=== PATIENT | female | born 1950 | race Caucasian/White ===

== ENCOUNTER 2018-05-26 12:08 | Inpatient (IN) ==
--- OUTSIDE RECORDS SUMMARY | 2018-05-26 18:02 | External Medical Summary | Continuity of Care Document ---
:1950 Author Organization [facility] Phone Unavailable Care Team Providers Name Role Phone SUSAN HERNANDEZ YOSVANY Primary Care Physician Insurance Providers Guarantor FrankChino jsohuasabrina Bansal Address [address] [place] [address] Payer Blue Cross Plan 65 [employer] Policy Number [id number] Subscriber's Name Tara Lunasharon Bansal Relationship 01 Self / Same As Patient Group Number [id number] Effective Date 16 Payer s Medicare Policy Number [id number] Subscriber's Name Teagan Luna Nimisha Relationship 01 Self / Same As Patient Effective Date 16 Problems Active Problems Medical Problem Onset Date Status Breast mass Unknown Acute Elevated liver enzymes Unknown Acute Shortness of breath Unknown Acute Medications Current Home Medications Medication Dose Units Route Directions Days Qty Instructions Start Date Amitriptyline Hcl 10 Mg Oral Bedtime as 30 IF TOO SLEEPY 02/20/ 10 Mg Tab needed for Tablet DECREASE TO 16 Sleeplessness 10MG EVERY OTHER EVENING Aspirin-Acetamino 1 X Oral as needed for 02/04/ phen-Caffeine Headache 16 (Excedrin Migraine) Migraine Tab Cholecalciferol 50,00 Iu Oral Twice A Week 02/04/ (Vitamin D3) 0 for Vitamin D 16 50,000 Unit Tab Supplement Citalopram 40 Mg Oral Daily for 02/03/ Hydrobromide 40 Depression 16 Mg Tab Dicyclomine Hcl 20 Mg Oral Daily for Ibs Mg Tab 16 Exenatide 20 Mcg Subcutaneous Daily for Dm, (Byetta) 10 Mcg ly Insulin Dep 16 Inj Type Ii Glyburide 2.5 Mg 2.5 Mg Oral Daily With Tab Breakfast for 16 Dm, Insulin Dependent Insulin Aspart 30 Units Subcutaneous 4 Times Daily 1 Vial (Novolog) 100 ly Ac & Hs for 16 Mg/Ml Inj Dm, Insulin Dep Type Ii Insulin Glargine 30 Unit Subcutaneous Bedtime for (Lantus Solostar) ly Dm, Insulin 16 Solostar Inj Dependent Lisinopril & 1 Tab Oral Daily for 90 Hydrochlorothiazi Hypertension 16 (Lisinopril/Hct 10/12.5) 1 Tab Tab Olanzapine 5 Mg 5 Mg Oral Daily for Not Tab Specified 16 Risperidone 1 Mg 1 Mg Oral Twice A Day Tab for Not 16 Specified Tizanidine Hcl 4 4 Mg Oral Twice A Day 02/03/ Mg Tab for Back 16 Spasms Past Home Medications Medication Directions Ordered Status Insulin Aspart (Novolog Flexpen) Four Times Daily for Dm, 02/05/16 Discontinued Flexpen Inj, 30 Units Insulin Dependent Subcutaneously Oxycodone/Acetaminophen (Percocet) Q4-6HRPRN for Pain 02/22/16 Discontinued 1 Ea Tab, 1-2 Ea Oral Social History Social History Problem Response Recorded Date/Time Onset Date Status Smoking Status Never smoker 02/25/2016 2:18pm Not Applicable Not Applicable Query Response Start Date Stop Date Smoking Status Never smoker Hospital Discharge Instructions Current inpatient/outpatient. Discharge instructions are currently unavailable. Plan of Care Current inpatient/outpatient. The plan of care is currently unavailable Functional Status No functional status results. 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 Reason Number Tetanus/Diphtheri 02/05/16 Administered 1 [id number] GLAXOSMITHKLINE a/Pertussis (age >=7) Vital Signs Acute Vital Signs Vital Response Date/Time Blood Pressure 124/57 mm Hg 02/22/2016 1:36pm Blood Pressure Mean 94 mm Hg 02/21/2016 3:22pm Blood Pressure Mean 79 mm Hg 02/22/2016 1:36pm Temperature (Fahrenheit) 99.0 degrees F (96.0 - 99.9) 02/22/2016 1:36pm Temperature (Calculated Celsius) 37.57375 degrees C 02/22/2016 1:36pm Temperature Source Oral 02/22/2016 1:36pm Temp 99.2 degrees F (96.0 - 99.9) 02/21/2016 3:25pm Temperature (Calculated Celsius) 37.96412 degrees C 02/21/2016 3:25pm Pulse Pulse Rate (adult) 108 bpm (60 - 100) 02/22/2016 1:36pm Pulse Rate (adult) 114 bpm (60 - 100) 02/21/2016 3:22pm Respiratory Rate 20 breaths per minute (10 - 20) 02/22/2016 1:36pm Respiratory Rate 10 bpm (10 - 20) 02/21/2016 3:22pm Height (Feet) 5 ft 02/21/2016 6:33am Height (Inches) 2.0 in. 02/21/2016 6:33am Weight (Pounds) 213.0 lbs 02/21/2016 6:33am Ambulatory Vital Signs Vital Response Date/Time Height 5 ft 11/03/2016 2:06pm Weight 213 lbs 11/03/2016 2:06pm Blood Pressure, Sitting, Left Arm 118/64 mm Hg 11/03/2016 2:06pm Pulse Rate 107 bpm 11/03/2016 2:06pm Respiration Rate 18 bpm 11/03/2016 2:06pm Body Surface Area 2.08 m2 11/03/2016 2:06pm Body Mass Index 41.6 kg/m2 11/03/2016 2:06pm Pulse Oximetry Pulse Oximetry 11/03/2016 2:06pm Results Laboratory Results Test Name Result Units Flags Reference Collection Result Comments Date/Time Date/Time Heparin 0.01 L 0.2-2.0 02/06/2016 02/06/2016 Anti-Xa Act, 4:24am 5:50am Low Molec Wt Heparin 0.01 L 0.3-0.7 02/06/2016 02/06/2016 The Xa results for both Unfractionated Heparin (UFH) and Low Anti-Xa Act, 4:24am 5:50am Molecular Weight Heparin (LMWH) are temporarily being given Unfractionate with each aPTT ordered. Utilize the Xa result that d coordinates with the type of heparin being administered, if the patient is on heparin therapy. Prothrombin 13.0 SECONDS H 9.0-12.0 02/04/2016 02/04/2016 Time 3:27pm 8:03pm Prothromb 1.19 L 2.0-3.0 02/04/2016 02/04/2016 Time THERAPEUTIC 3:27pm 8:03pm International Ratio Activated 31.3 SECONDS 24.0-37.0 02/06/2016 02/06/2016 Partial 4:24am 5:50am Thromboplast Time MRSA MRSA NEGATIVE 02/04/2016 02/04/2016 Surveillance NEGATIVE 5:25pm 9:52pm Screen Anti-Nuclear Negative Negative 02/06/2016 02/08/2016 HERIBERTO Panel, Quantitative performed at [facility], [facility], Antibody 4:24am 4:57am [place] [address] Director Speech And Hearing Eryn Langford DO Titer Hepatitis B Negative 02/06/2016 02/06/2016 Core IgM 4:24am 11:23pm Antibody Hepatitis B Negative Negative 02/06/2016 02/06/2016 Surface 4:24am 11:23pm Antigen Tissue <1.2 U/mL 02/06/2016 02/10/2016 Reference Range: Transglutamin 4:24am 12:55pm <4.0 (Negative) ase IgA Ab Test Performed by: [place] [address] [employer]: Daria Galloway II, M.D., Ph.D. Tissue 1.7 U/mL 02/06/2016 02/10/2016 Reference Range: Transglutamin 4:24am 12:07pm <6.0 (Negative) ase IgG Ab Test Performed by: [address] [address] [employer]: Daria Galloway II, M.D., Ph.D. Tissue Transglutaminase Ab, IgA/[place] [address] Director Speech And Hearing Nilesh Regan MD Hepatitis C Negative Negative 02/06/2016 02/06/2016 Hepatitis Panel performed at [facility], [facility], [place] Antibody 4:24am 11:23pm [id number] Director Speech And Hearing Eryn Langford DO Hepatitis A Negative Negative 02/06/2016 02/06/2016 IgM Antibody 4:24am 11:23pm Bedside 223 mg/dL H 70-120 02/22/2016 02/22/2016 Glucose 11:54am 11:56am CA 27.29 13.4 U/mL <=38.0 09/23/2016 09/25/2016 ADDITIONAL INFORMATION 10:54am 10:47pm The testing method is a chemiluminometric immunoassay manufactured by [employer] and performed on the [employer]. Values obtained with different assay methods or kits may be different and cannot be used interchangeably. Test results cannot be interpreted as absolute evidence for the presence or absence of malignant disease. Test Performed by: [place] [address] [employer]: Daria Galloway II, M.D., Ph.D. CA 27.29 performed at [facility], [address] [place] [address] Director Speech And Hearing Nilesh Regan MD White Blood 5.5 K/uL 5.0-10.0 02/11/2017 02/11/2017 Count 3:05pm 3:28pm Red Blood 3.06 M/uL L 4.20-5.40 02/11/2017 02/11/2017 Count 3:05pm 3:28pm Hemoglobin 9.5 g/dL L 12.0-16.0 02/11/2017 02/11/2017 3:05pm 3:28pm Hematocrit 29.2 % L 38.0-47.0 02/11/2017 02/11/2017 3:05pm 3:28pm Mean 95.4 fL 82.0-100.0 02/11/2017 02/11/2017 Corpuscular 3:05pm 3:28pm Volume Mean 31.0 pg 26.0-33.0 02/11/2017 02/11/2017 Corpuscular 3:05pm 3:28pm Hemoglobin Mean 32.5 g/dL 31.0-36.0 02/11/2017 02/11/2017 Corpuscular 3:05pm 3:28pm Hemoglobin Concent Red Cell 15.9 % H 11.5-14.5 02/11/2017 02/11/2017 Distribution 3:05pm 3:28pm Width RDW Standard 53.5 fL H 36.4-46.3 02/11/2017 02/11/2017 Deviation 3:05pm 3:28pm Platelet 236 K/uL 130-400 02/11/2017 02/11/2017 Count 3:05pm 3:28pm Mean Platelet 8.2 fL 7.0-11.0 02/11/2017 02/11/2017 Volume 3:05pm 3:28pm Neutrophils 71.8 % 42.0-75.0 02/11/2017 02/11/2017 (%) (Auto) 3:05pm 3:28pm Lymphocytes 17.2 % 16.0-44.0 02/11/2017 02/11/2017 (%) (Auto) 3:05pm 3:28pm Monocytes (%) 7.1 % 2.0-9.0 02/11/2017 02/11/2017 (Auto) 3:05pm 3:28pm Eosinophils 2.5 % 0-7.0 02/11/2017 02/11/2017 (%) (Auto) 3:05pm 3:28pm Basophils (%) 0.5 % 0-1 02/11/2017 02/11/2017 (Auto) 3:05pm 3:28pm Immature 0.9 % H 0-0.5 02/11/2017 02/11/2017 Granulocyte % 3:05pm 3:28pm (Auto) Nucleated Red 0.0 /100WBC 0-0 02/11/2017 02/11/2017 Blood Cells % 3:05pm 3:28pm Neutrophils # 4.0 K/uL 1.9-8.0 02/11/2017 02/11/2017 (Auto) 3:05pm 3:28pm Lymphocytes # 1.0 K/uL 0.9-5.2 02/11/2017 02/11/2017 (Auto) 3:05pm 3:28pm Monocytes # 0.4 K/uL 0.16-1.0 02/11/2017 02/11/2017 (Auto) 3:05pm 3:28pm Eosinophils # 0.1 K/uL 0-0.8 02/11/2017 02/11/2017 (Auto) 3:05pm 3:28pm Basophils # 0.0 K/uL 0-0.2 02/11/2017 02/11/2017 (Auto) 3:05pm 3:28pm Immature 0.05 K/uL 0-0.40 02/11/2017 02/11/2017 Granulocyte # 3:05pm 3:28pm (Auto) Nucleated Red 0.00 K/uL 0.0-0.012 02/11/2017 02/11/2017 Blood Cells # 3:05pm 3:28pm Reticulocyte 4.1 % H 0.5-1.8 02/11/2017 02/11/2017 % (auto) 3:05pm 3:28pm Reticulocyte 0.124 X10e6/uL 0.022-0.139 02/11/2017 02/11/2017 Count (auto) 3:05pm 3:28pm Immature 35.2 % H 3.0-15.9 02/11/2017 02/11/2017 Reticulocyte 3:05pm 3:28pm Fraction Reticulocyte 35.3 pg 28.0-37.0 02/11/2017 02/11/2017 Hemoglobin 3:05pm 3:28pm Content Iron Level 45 ug/dL L 60-160 02/11/2017 02/11/2017 3:05pm 4:02pm TRANSFERRIN 247 mg/dL L 250-380 02/11/2017 02/11/2017 3:05pm 4:02pm Total Iron 368.6 ug/dl 250-460 02/11/2017 02/11/2017 Binding 3:05pm 4:02pm Capacity Percent Iron 12.2 % L 15-50 02/11/2017 02/11/2017 Saturation 3:05pm 4:02pm Vitamin B12 258 pg/ml 180-950 02/11/2017 02/11/2017 Level 3:05pm 4:52pm Ferritin 55.6 ng/mL 11.0-306.8 02/11/2017 02/11/2017 3:05pm 4:52pm Haptoglobin 253 mg/dL H 36-195 02/11/2017 02/12/2017 Haptoglobin performed at [facility], [address] [facility] [place] [address] 3:05pm 12:59am Director Speech And Hearing Eryn Langford DO Random 111 mg/dL 65-115 02/03/2017 02/03/2017 Glucose 12:00pm 1:25pm Blood Urea 27 mg/dL H 8-25 02/03/2017 02/03/2017 Nitrogen 12:00pm 1:25pm Creatinine 1.30 mg/dL 0.9-1.6 02/03/2017 02/03/2017 12:00pm 1:25pm Glomerular 40.98 mL/min 02/03/2017 02/03/2017 MULTIPLY RESULT BY 1.210 IF THE PATIENT IS -ETHIOPIAN Filtration 12:00pm 1:25pm Units are mL/min/1.73 m2 Rate Calc > 60 Normal kidney function 30-59 Moderately decreased kidney function 15-29 Severely decreased kidney function <15 End-stage kidney failure BUN/Creatinin 20.8 02/03/2017 02/03/2017 e Ratio 12:00pm 1:25pm Sodium Level 135 mEq/L 133-145 02/03/2017 02/03/2017 12:00pm 1:25pm Potassium 4.5 mEq/L 3.5-5.1 02/03/2017 02/03/2017 Level 12:00pm 1:25pm Chloride 98 mEq/L 98-116 02/03/2017 02/03/2017 Level 12:00pm 1:25pm Carbon 29 mEq/L 22-34 02/03/2017 02/03/2017 Dioxide Level 12:00pm 1:25pm Anion Gap 12.5 6-13 02/03/2017 02/03/2017 12:00pm 1:25pm Calcium Level 9.7 mg/dL 8.2-10.6 02/03/2017 02/03/2017 12:00pm 1:25pm Total Protein 7.1 gm/dL 6.0-8.4 02/03/2017 02/03/2017 12:00pm 1:25pm Albumin 3.4 gm/dL 3.2-5.0 02/03/2017 02/03/2017 12:00pm 1:25pm Globulin 3.7 gm/dL H 2.0-3.0 02/03/2017 02/03/2017 12:00pm 1:25pm Albumin/Globu 0.9 L 1.4-2.4 02/03/2017 02/03/2017 mona Ratio 12:00pm 1:25pm Total 0.3 mg/dL 0.1-1.3 02/03/2017 02/03/2017 Bilirubin 12:00pm 1:25pm Alkaline 73 U/L 35-125 02/03/2017 02/03/2017 Phosphatase 12:00pm 1:25pm Aspartate 21 U/L 5-40 02/03/2017 02/03/2017 Amino Transf 12:00pm 1:25pm (AST/SGOT) Alanine 22 U/L 5-40 02/03/2017 02/03/2017 Aminotransfer 12:00pm 1:25pm ase (ALT/SGPT) Thyroid 2.54 uIU/ml 0.34-5.60 02/11/2017 02/11/2017 Stimulating 3:05pm 4:52pm Hormone (TSH) Albumin (PEP) 3.6 g/dL 2.6-4.5 02/11/2017 02/12/2017 3:05pm 1:37pm IEP 0.3 g/dL 0.3-0.5 02/11/2017 02/12/2017 Orosomucoid 3:05pm 1:37pm (Alpha-1) IEP 0.9 g/dL 0.6-1.2 02/11/2017 02/12/2017 Ceruloplasmin 3:05pm 1:37pm (Alpha-2) Paraprotein 0.9 g/dL 0.4-1.7 02/11/2017 02/12/2017 Gamma 3:05pm 1:37pm Fraction Immunoelectro see below 02/11/2017 02/12/2017 Normal electrophoretic pattern. No monoclonal peaks or phoresis 3:05pm 1:37pm restricted areas observed by immunofixation. Comment Protein 6.4 g/dL 6.0-7.6 02/11/2017 02/11/2017 Electrophores 3:05pm 10:24pm is (T) Immunoelectro 985 mg/dL 552-1631 02/11/2017 02/11/2017 phoresis IgG 3:05pm 10:24pm Immunoelectro 25 mg/dL L 69-517 02/11/2017 02/11/2017 phoresis IgA 3:05pm 10:24pm Immunoelectro 32 mg/dL L 33-293 02/11/2017 02/11/2017 Immunoelectrophoresis, Serum performed at [facility], [address], phoresis IgM 3:05pm 10:24pm [place] [id number] Director Speech And Hearing Eryn Langford DO Albumin (%) 55.9 % 48.7-61.8 02/11/2017 02/12/2017 3:05pm 1:37pm Mwzkf-1-Thxau 5.3 % 3.4-8.3 02/11/2017 02/12/2017 michael (%) 3:05pm 1:37pm Alpha-2 Beta 13.9 % 8.4-17.5 02/11/2017 02/12/2017 Globulin (%) 3:05pm 1:37pm IEP 7.1 % 5.4-8.9 02/11/2017 02/12/2017 Inub-1-Dsdnxd 3:05pm 1:37pm ment Beta-Globulin 0.5 g/dL 0.4-0.6 02/11/2017 02/12/2017 s (BRAYAN) 3:05pm 1:37pm Ztvg-7-Coweir 4.4 % 3.8-7.7 02/11/2017 02/12/2017 in (%) 3:05pm 1:37pm Oizv-5-Bdyzxh 0.3 g/dL 0.2-0.5 02/11/2017 02/12/2017 in 3:05pm 1:37pm Gamma 13.4 % 8.1-23.0 02/11/2017 02/12/2017 Immunoelectrophoresis, Serum performed at [facility], [address], Globulins (%) 3:05pm 1:37pm [place] [id number] Director Speech And Hearing Eryn Langford DO Procedures Procedure Status Date Provider(s) EXCISION OF LEFT BREAST, PERCUTANEOUS Completed 02/06/16 GILES TODD M.D. APPROACH, DIAGNOSTIC MAST SIMPLE COMPLETE Completed 02/21/16 GILES TODD M.D. BIOPSY/REMOVAL LYMPH NODES Completed 02/21/16 GILES TODD M.D. Encounters Encounter Location Arrival/Admit Date Discharge/Depart Date Attending Provider Discharged Layla Brown 02/11/17 3:03pm 05/22/17 11:59pm JEAN CLAUDE DONOVAN [facility] Rodolfo Wang Registered Layla Brown 02/03/17 12:18pm JEAN CLAUDE DONOVAN Referred [facility] S. M.D. Office Visit GILES TODD 11/03/16 1:45pm GILES TODD M.D. Registered Giles Todd 11/03/16 1:45pm GILES TODD M.D. Discharged Layla Brown 09/23/16 10:53am 01/01/17 11:59pm JEAN CLAUDE DONOVAN [facility] S. M.D[facility] Office Visit GILES TODD 07/06/16 1:45pm GILES TODD M.D. Discharged Layla Brown 05/13/16 1:58pm 11/22/16 11:59pm BRYCE GOODMAN [facility] A M.DJaxon Registered Layla Brown 05/13/16 12:46pm BRYCE GOODMAN Referred Mem[facility] Hospital A M.DJaxon Registered Layla Brown 04/21/16 7:39am JEAN CLAUDE DONOVAN Referred [facility] S. M.D. Office Visit GILES TODD 04/06/16 2:15pm GILES TODD M.D. Office Visit GILES TODD 03/09/16 1:45pm GILES TODD M.D. Office Visit GILES TODD 02/28/16 1:45pm GILES TODD M.D. Office Visit GILES TODD 02/25/16 2:00pm GILES TODD M.D. Departed Layla Brown 02/21/16 6:33am 02/22/16 1:51pm GILES TODD Surgical Day [facility]. [facility] Office Visit GILES TODD 02/13/16 2:45pm GILES TODD M.D. Discharged Layla Brown 02/04/16 5:50pm 02/06/16 4:25pm PA RIOS Inpatient [facility]. [facility] M.Gabrielle.
--- OUTSIDE RECORDS SUMMARY | 2018-05-26 18:02 | External Medical Summary | Continuity of Care Document ---
:1950 Author Organization [facility] Phone Unavailable Care Team Providers Name Role Phone SUSAN HERNANDEZ YOSVANY Primary Care Physician Insurance Providers Guarantor FrankChino joshuasabrina Bansal Address [address] [place] [address] Payer Blue Cross Plan 65 Select Policy Number [id number] Subscriber's Name Tara Lunasharon Bansal Relationship 01 Self / Same As Patient Group Number [id number] Effective Date 16 Payer s Medicare Policy Number [id number] Subscriber's Name Tara Lunasharon Bansal Relationship 01 [...] Smoking Status Never smoker Hospital Discharge Instructions No hospital discharge instructions. Plan of Care Prescriptions See Medication Section Functional Status No functional status results. 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 Reason Number Tetanus/Diphtheri 02/05/16 Administered 1 [id number] GLAXOSMITHKLINE a/Pertussis (age >=7) Vital Signs Acute Vital Signs Vital Response Date/Time Blood Pressure 124/57 mm Hg 02/22/2016 1:36pm Blood Pressure Mean 94 mm Hg 02/21/2016 3:22pm Blood Pressure Mean 79 mm Hg 02/22/2016 1:36pm Temperature (Fahrenheit) 99.0 degrees F (96.0 - 99.9) 02/22/2016 1:36pm Temperature (Calculated Celsius) 37.34598 degrees C 02/22/2016 1:36pm Temperature Source Oral 02/22/2016 1:36pm Temp 99.2 degrees F (96.0 - 99.9) 02/21/2016 3:25pm Temperature (Calculated Celsius) 37.61332 degrees C 02/21/2016 3:25pm Pulse Pulse Rate [...] Flags Reference Collection Result Comments Date/Time Date/Time TRANSFERRIN 206 mg/dL L 250-380 02/06/2016 02/06/2016 4:24am 10:35am Ferritin 388.5 ng/mL H 11.0-306.8 02/06/2016 02/06/2016 4:24am 11:15am Heparin 0.01 L 0.2-2.0 02/06/2016 02/06/2016 Anti-Xa [...] 02/06/2016 02/06/2016 Partial 4:24am 5:50am Thromboplast Time Thyroid 2.50 uIU/ml 0.34-5.60 02/06/2016 02/06/2016 Stimulating 4:24am 11:15am Hormone (TSH) MRSA MRSA NEGATIVE 02/04/2016 02/04/2016 Surveillance NEGATIVE 5:25pm 9:52pm Screen Anti-Nuclear Negative Negative 02/06/2016 02/08/2016 HERIBERTO Panel, Quantitative performed at [facility], [address], Antibody 4:24am 4:57am [place] [id number] Scrap Baler Eryn Langford DO Titer Hepatitis B Negative 02/06/2016 02/06/2016 Core IgM 4:24am 11:23pm Antibody Hepatitis B Negative Negative 02/06/2016 02/06/2016 Surface 4:24am 11:23pm Antigen Tissue <1.2 U/mL 02/06/2016 02/10/2016 Reference Range: Transglutamin 4:24am 12:55pm <4.0 (Negative) ase IgA Ab Test Performed by: [place] [address] Plant Operations Coordinator: Daria Galloway II, M.D., Ph.D. Tissue 1.7 U/mL 02/06/2016 02/10/2016 Reference Range: Transglutamin 4:24am 12:07pm <6.0 (Negative) ase IgG Ab Test Performed by: [place] [address] Plant Operations Coordinator: Daria Galloway II, M.D., Ph.D. Tissue Transglutaminase Ab, IgA/IgG performed at [facility], [address] [place] [address] Scrap Baler Nilesh Regan MD Hepatitis C Negative Negative 02/06/2016 02/06/2016 Hepatitis Panel performed at [facility], [address], [place] Antibody 4:24am 11:23pm [id number] Scrap Baler Eryn Langford DO Hepatitis A Negative Negative 02/06/2016 02/06/2016 IgM Antibody 4:24am 11:23pm Bedside 223 mg/dL H 70-120 02/22/2016 02/22/2016 Glucose 11:54am 11:56am White Blood 3.9 K/uL L 5.0-10.0 09/23/2016 09/23/2016 Count 10:54am 11:22am Red Blood 3.17 M/uL L 4.20-5.40 09/23/2016 09/23/2016 Count 10:54am 11:22am Hemoglobin 10.1 g/dL L 12.0-16.0 09/23/2016 09/23/2016 10:54am 11:22am Hematocrit 30.9 % L 38.0-47.0 09/23/2016 09/23/2016 10:54am 11:22am Mean 97.5 fL 82.0-100.0 09/23/2016 09/23/2016 Corpuscular 10:54am 11:22am Volume Mean 31.9 pg 26.0-33.0 09/23/2016 09/23/2016 Corpuscular 10:54am 11:22am Hemoglobin Mean 32.7 g/dL 31.0-36.0 09/23/2016 09/23/2016 Corpuscular 10:54am 11:22am Hemoglobin Concent Red Cell 15.3 % H 11.5-14.5 09/23/2016 09/23/2016 Distribution 10:54am 11:22am Width RDW Standard 55.1 fL H 36.4-46.3 09/23/2016 09/23/2016 Deviation 10:54am 11:22am Platelet 181 K/uL 130-400 09/23/2016 09/23/2016 Count 10:54am 11:22am Mean Platelet 8.6 fL 7.0-11.0 09/23/2016 09/23/2016 Volume 10:54am 11:22am Neutrophils 64.8 % 42.0-75.0 09/23/2016 09/23/2016 (%) (Auto) 10:54am 11:22am Lymphocytes 20.7 % 16.0-44.0 09/23/2016 09/23/2016 (%) (Auto) 10:54am 11:22am Monocytes (%) 10.1 % H 2.0-9.0 09/23/2016 09/23/2016 (Auto) 10:54am 11:22am Eosinophils 3.1 % 0-7.0 09/23/2016 09/23/2016 (%) (Auto) 10:54am 11:22am Basophils (%) 0.8 % 0-1 09/23/2016 09/23/2016 (Auto) 10:54am 11:22am Immature 0.5 % 0-0.5 09/23/2016 09/23/2016 Granulocyte % 10:54am 11:22am (Auto) Nucleated Red 0.0 /100WBC 0-0 09/23/2016 09/23/2016 Blood Cells % 10:54am 11:22am Neutrophils # 2.5 K/uL 1.9-8.0 09/23/2016 09/23/2016 (Auto) 10:54am 11:22am Lymphocytes # 0.8 K/uL L 0.9-5.2 09/23/2016 09/23/2016 (Auto) 10:54am 11:22am Monocytes # 0.4 K/uL 0.16-1.0 09/23/2016 09/23/2016 (Auto) 10:54am 11:22am Eosinophils # 0.1 K/uL 0-0.8 09/23/2016 09/23/2016 (Auto) 10:54am 11:22am Basophils # 0.0 K/uL 0-0.2 09/23/2016 09/23/2016 (Auto) 10:54am 11:22am Immature 0.02 K/uL 0-0.40 09/23/2016 09/23/2016 Granulocyte # 10:54am 11:22am (Auto) Nucleated Red 0.00 K/uL 0.0-0.012 09/23/2016 09/23/2016 Blood Cells # 10:54am 11:22am Random 149 mg/dL H 65-115 09/23/2016 09/23/2016 Glucose 10:54am 1:21pm Blood Urea 32 mg/dL H 8-25 09/23/2016 09/23/2016 Nitrogen 10:54am 1:21pm Creatinine 1.38 mg/dL 0.9-1.6 09/23/2016 09/23/2016 10:54am 1:21pm Glomerular 38.37 mL/min 09/23/2016 09/23/2016 MULTIPLY RESULT BY 1.210 IF THE PATIENT IS -[place] Filtration 10:54am 1:21pm Units are mL/min/1.73 m2 Rate Calc > 60 Normal kidney function 30-59 Moderately decreased kidney function 15-29 Severely decreased kidney function <15 End-stage kidney failure BUN/Creatinin 23.2 09/23/2016 09/23/2016 e Ratio 10:54am 1:21pm Sodium Level 134 mEq/L 133-145 09/23/2016 09/23/2016 10:54am 1:21pm Potassium 4.4 mEq/L 3.5-5.1 09/23/2016 09/23/2016 Level 10:54am 1:21pm Chloride 100 mEq/L 98-116 09/23/2016 09/23/2016 Level 10:54am 1:21pm Carbon 26 mEq/L 22-34 09/23/2016 09/23/2016 Dioxide Level 10:54am 1:21pm Anion Gap 12.4 6-13 09/23/2016 09/23/2016 10:54am 1:21pm Calcium Level 9.6 mg/dL 8.2-10.6 09/23/2016 09/23/2016 10:54am 1:21pm Total Protein 7.0 gm/dL 6.0-8.4 09/23/2016 09/23/2016 10:54am 1:21pm Albumin 4.1 gm/dL 3.2-5.0 09/23/2016 09/23/2016 10:54am 1:21pm Globulin 2.9 gm/dL 2.0-3.0 09/23/2016 09/23/2016 10:54am 1:21pm Albumin/Globu 1.4 1.4-2.4 09/23/2016 09/23/2016 mona Ratio 10:54am 1:21pm Total 0.7 mg/dL 0.1-1.3 09/23/2016 09/23/2016 Bilirubin 10:54am 1:21pm Alkaline 78 U/L 35-125 09/23/2016 09/23/2016 Phosphatase 10:54am 1:21pm Aspartate 26 U/L 5-40 09/23/2016 09/23/2016 Amino Transf 10:54am 1:21pm (AST/SGOT) Alanine 25 U/L 5-40 09/23/2016 09/23/2016 Aminotransfer 10:54am 1:21pm ase (ALT/SGPT) CA 27.29 13.4 U/mL <=38.0 09/23/2016 09/25/2016 ADDITIONAL INFORMATION 10:54am 10:47pm The testing method is a chemiluminometric immunoassay manufactured by Siemens and performed on the [employer]. Values obtained with different assay methods or kits may be different and cannot be used interchangeably. Test results cannot be interpreted as absolute evidence for the presence or absence of malignant disease. Test Performed by: [place] [address] Plant Operations Coordinator: Daria Galloway II, M.D., Ph.D. CA 27.29 performed at [facility], [address] [place] [address] Scrap Baler Nilesh Regan MD Procedures Procedure Status Date Provider(s) EXCISION OF LEFT BREAST, PERCUTANEOUS Completed 02/06/16 GILES TODD M.D. APPROACH, DIAGNOSTIC MAST SIMPLE COMPLETE Completed 02/21/16 GILES TODD M.D. BIOPSY/REMOVAL LYMPH NODES Completed 02/21/16 GILES TODD M.D. Encounters Encounter Location Arrival/Admit Date Discharge/Depart Date Attending Provider Office Visit GILES TODD 11/03/16 1:45pm GILES TODD M.D. Registered Giles Todd 11/03/16 1:45pm GILES TODD M.D. Discharged Layla Brown 09/23/16 10:53am 01/01/17 11:59pm JEAN CLAUDE DONOVAN [facility] Office Visit GILES TODD 07/06/16 1:45pm GILES TODD M.D. Discharged Layla Brown 05/13/16 1:58pm 11/22/16 11:59pm BRYCE GOODMAN [facility] Paul Wang Registered Layla Brown 05/13/16 12:46pm BRYCE GOODMAN Referred [facility] Paul Wang Registered Layla Brown 04/21/16 7:39am JEAN CLAUDE DONOVAN Referred [facility] S. MJaxonDJaxon Office Visit GILES TODD 04/06/16 2:15pm GILES TODD M.D. Office Visit GILES TODD 03/09/16 1:45pm GILES TODD M.D. Office Visit GILES TODD 02/28/16 1:45pm GILES TODD M.D. Office Visit GILES TODD 02/25/16 2:00pm GILES TODD M.D. Departed Layla Brown 02/21/16 6:33am 02/22/16 1:51pm GILES TODD [facility] Office Visit GILES TODD 02/13/16 2:45pm GILES TODD M.D. Discharged Layla Brown 02/04/16 5:50pm 02/06/16 4:25pm PA RIOS [facility] H M.DJaxon Recent Diagnosis S/P left mastectomy
--- OUTSIDE RECORDS SUMMARY | 2018-05-26 18:02 | External Medical Summary | Continuity of Care Document ---
:1950 Author Organization Layla [facility] Phone Unavailable Care Team Providers Name Role Phone SUSAN HERNANDEZ APRN Primary Care Physician Insurance Providers Guarantor Teagan Luna Address [address] [place] [address] Payer Wps Medicare Policy Number [id number] Subscriber's Name Tara Lunasharon Bansal Relationship 01 Self / Same As Patient Effective Date 16 Payer Blue Cross Plan 65 Select Policy Number [id number] Subscriber's Name Tara Lunasharon Bansal Relationship 01 Self / Same As Patient Group Number [id number] Effective Date 16 Advance Directives No advance directive information available. Problems Medical Problem Onset Date Status Breast mass Unknown Acute Elevated liver enzymes Unknown Acute Shortness of breath Unknown Acute Medications Current Home Medications Medication Dose Units Route Directions Days Qty Instructions Start Date Amitriptyline Hcl 10 Mg Oral Bedtime as 30 IF TOO SLEEPY 10 Mg Tab needed for Tablet DECREASE TO Sleeplessness 10MG EVERY OTHER EVENING Aspirin-Acetamino 1 X Oral as needed for phen-Caffeine Headache (Excedrin Migraine) Migraine Tab Cholecalciferol 50,00 Iu Oral Twice A Week (Vitamin D3) 0 for Vitamin D 50,000 Unit Tab Supplement Citalopram 40 Mg Oral Daily for Hydrobromide 40 Depression Mg Tab Dicyclomine Hcl 20 Mg Oral Daily for Ibs 20 Mg Tab Exenatide 20 Mcg Subcutaneous Daily for Dm, (Byetta) 10 Mcg ly Insulin Dep Inj Type Ii Glyburide 2.5 Mg 2.5 Mg Oral Daily With Tab Breakfast for Dm, Insulin Dependent Insulin Aspart 30 Units Subcutaneous 4 Times Daily 1 Vial (Novolog) 100 ly Ac & Hs for Mg/Ml Inj Dm, Insulin Dep Type Ii Insulin Glargine 30 Unit Subcutaneous Bedtime for (Lantus Solostar) ly Dm, Insulin Solostar Inj Dependent Lisinopril & 1 Tab Oral Daily for 90 Hydrochlorothiazi Hypertension (Lisinopril/Hct 07/29.5) 1 Tab Tab Olanzapine 5 Mg 5 Mg Oral Daily for Not Tab Specified Risperidone 1 Mg 1 Mg Oral Twice A Day Tab for Not Specified Tizanidine Hcl 4 4 Mg Oral Twice A Day Mg Tab for Back Spasms Past Home Medications Medication Directions Ordered Status Insulin Aspart (Novolog Flexpen) Four Times Daily for Dm, Discontinued Flexpen Inj, 30 Units Insulin Dependent Subcutaneously Oxycodone/Acetaminophen (Percocet) Q4-6HRPRN for Pain 02/22/16 Discontinued 1 Ea Tab, 1-2 Ea Oral Social History Social History Problem Response Recorded Date/Time Onset Date Status Smoking Status Never smoker 02/25/2016 2:18pm Not Applicable Not Applicable Smoking Status Start Date Stop Date Never smoker Hospital Discharge Instructions No hospital discharge instruction information available. Plan of Care Prescriptions See Medication Section Functional Status No functional status information available. Allergies, Adverse Reactions, Alerts Allergen Type Severity Reaction Status Last Updated Metformin ([id number]) Allergy Severe Active 02/04/16 Immunizations Immunization Event Type Not Given Dose Lot Number Procurement Internship Date Reason Number Tetanus/Diphtheri 02/05/16 Administered 1 [id number] GLAXOSMITHKLINE a/Pertussis (age >=7) Vital Signs Acute Vital Signs Vital Response Date/Time Blood Pressure 124/57 mm Hg 02/22/2016 1:36pm Blood Pressure Mean 94 mm Hg 02/21/2016 3:22pm Blood Pressure Mean 79 mm Hg 02/22/2016 1:36pm Temperature (Fahrenheit) 99.0 degrees F (96.0 - 99.9) 02/22/2016 1:36pm Temperature (Calculated Celsius) 37.63866 degrees C 02/22/2016 1:36pm Temperature Source Oral 02/22/2016 1:36pm Temp 99.2 degrees F (96.0 - 99.9) 02/21/2016 3:25pm Temperature (Calculated Celsius) 37.71494 degrees C 02/21/2016 3:25pm Pulse Pulse Rate [...] 02/06/2016 02/08/2016 HERIBERTO Panel, Quantitative performed at [facility], [facility], Antibody 4:24am 4:57am [place] [address] Plastic Press Molder Eryn Langford DO Titer Hepatitis B Negative 02/06/2016 02/06/2016 Core IgM 4:24am 11:23pm Antibody Hepatitis B Negative Negative 02/06/2016 02/06/2016 Surface 4:24am 11:23pm Antigen Tissue <1.2 U/mL 02/06/2016 02/10/2016 Reference Range: Transglutamin 4:24am 12:55pm <4.0 (Negative) ase IgA Ab Test Performed by: [place] [address] Toolroom Clerk: Daria Galloway II, M.D., Ph.D. Tissue 1.7 U/mL 02/06/2016 02/10/2016 Reference Range: Transglutamin 4:24am 12:07pm <6.0 (Negative) ase IgG Ab Test Performed by: [place] [address] Toolroom Clerk: Daria Galloway II, M.D., Ph.D. Tissue Transglutaminase Ab, IgA/IgG performed at [facility], [address] [place] [address] Plastic Press Molder Nilesh Regan MD Hepatitis C Negative Negative 02/06/2016 02/06/2016 Hepatitis Panel performed at [facility], [facility], [place], [place] Antibody 4:24am 11:23pm [id number] Plastic Press Molder Eryn Langford DO Hepatitis A Negative Negative 02/06/2016 02/06/2016 IgM Antibody 4:24am 11:23pm Bedside 223 mg/dL H 70-120 02/22/2016 02/22/2016 Glucose 11:54am 11:56am CA 27.29 13.4 U/mL <=38.0 09/23/2016 09/25/2016 ADDITIONAL INFORMATION 10:54am 10:47pm The testing method is a chemiluminometric immunoassay manufactured by Siemens and performed on the [employer]. Values obtained with different assay methods or kits may be different and cannot be used interchangeably. Test results cannot be interpreted as absolute evidence for the presence or absence of malignant disease. Test Performed by: [place] [address] Toolroom Clerk: Daria Galloway II, M.D., Ph.D. CA 27.29 performed at [facility], [address] [place] [address] Plastic Press Molder Nilesh Regan MD Reticulocyte 4.1 % H 0.5-1.8 02/11/2017 02/11/2017 [...] H 36-195 02/11/2017 02/12/2017 Haptoglobin performed at [facility], [address] [facility], [place] [address] 3:05pm 12:59am Plastic Press Molder Eryn Langford, DO Thyroid 2.54 uIU/ml 0.34-5.60 02/11/2017 02/11/2017 Stimulating [...] 33-293 02/11/2017 02/11/2017 Immunoelectrophoresis, Serum performed at [facility], [address], phoresis IgM 3:05pm 10:24pm [place] [address] Plastic Press Molder Eryn Langford, DO Albumin (%) 55.9 % 48.7-61.8 02/11/2017 02/12/2017 3:05pm 1:37pm Sjwzu-0-Lmdos 5.3 % 3.4-8.3 02/11/2017 02/12/2017 michael (%) 3:05pm 1:37pm Alpha-2 Beta 13.9 % 8.4-17.5 02/11/2017 02/12/2017 Globulin (%) 3:05pm 1:37pm IEP 7.1 % 5.4-8.9 02/11/2017 02/12/2017 Kvnf-9-Ryzroo 3:05pm 1:37pm ment Beta-Globulin 0.5 g/dL 0.4-0.6 02/11/2017 02/12/2017 s (BRAYAN) 3:05pm 1:37pm Auzb-9-Iykyrn 4.4 % 3.8-7.7 02/11/2017 02/12/2017 in (%) 3:05pm 1:37pm Qutr-1-Tuqejz 0.3 g/dL 0.2-0.5 02/11/2017 02/12/2017 in 3:05pm 1:37pm Gamma 13.4 % 8.1-23.0 02/11/2017 02/12/2017 Immunoelectrophoresis, Serum performed at [facility], [address], Globulins (%) 3:05pm 1:37pm [place] [address] Plastic Press Molder Eryn Langford, White Blood 4.8 K/uL L 5.0-10.0 07/06/2017 07/06/2017 Count 3:40pm 3:49pm Red Blood 3.74 M/uL L 4.20-5.40 07/06/2017 07/06/2017 Count 3:40pm 3:49pm Hemoglobin 11.7 g/dL L 12.0-16.0 07/06/2017 07/06/2017 3:40pm 3:49pm Hematocrit 35.8 % L 38.0-47.0 07/06/2017 07/06/2017 3:40pm 3:49pm Mean 95.7 fL 82.0-100.0 07/06/2017 07/06/2017 Corpuscular 3:40pm 3:49pm Volume Mean 31.3 pg 26.0-33.0 07/06/2017 07/06/2017 Corpuscular 3:40pm 3:49pm Hemoglobin Mean 32.7 g/dL 31.0-36.0 07/06/2017 07/06/2017 Corpuscular 3:40pm 3:49pm Hemoglobin Concent Red Cell 14.6 % H 11.5-14.5 07/06/2017 07/06/2017 Distribution 3:40pm 3:49pm Width RDW Standard 51.0 fL H 36.4-46.3 07/06/2017 07/06/2017 Deviation 3:40pm 3:49pm Platelet 210 K/uL 130-400 07/06/2017 07/06/2017 Count 3:40pm 3:49pm Mean Platelet 8.5 fL 7.0-11.0 07/06/2017 07/06/2017 Volume 3:40pm 3:49pm Neutrophils 69.1 % 42.0-75.0 07/06/2017 07/06/2017 (%) (Auto) 3:40pm 3:49pm Lymphocytes 18.3 % 16.0-44.0 07/06/2017 07/06/2017 (%) (Auto) 3:40pm 3:49pm Monocytes (%) 9.1 % H 2.0-9.0 07/06/2017 07/06/2017 (Auto) 3:40pm 3:49pm Eosinophils 2.3 % 0-7.0 07/06/2017 07/06/2017 (%) (Auto) 3:40pm 3:49pm Basophils (%) 0.8 % 0-1 07/06/2017 07/06/2017 (Auto) 3:40pm 3:49pm Immature 0.4 % 0-0.5 07/06/2017 07/06/2017 Granulocyte % 3:40pm 3:49pm (Auto) Nucleated Red 0.0 /100WBC 0-0 07/06/2017 07/06/2017 Blood Cells % 3:40pm 3:49pm Neutrophils # 3.3 K/uL 1.9-8.0 07/06/2017 07/06/2017 (Auto) 3:40pm 3:49pm Lymphocytes # 0.9 K/uL 0.9-5.2 07/06/2017 07/06/2017 (Auto) 3:40pm 3:49pm Monocytes # 0.4 K/uL 0.16-1.0 07/06/2017 07/06/2017 (Auto) 3:40pm 3:49pm Eosinophils # 0.1 K/uL 0-0.8 07/06/2017 07/06/2017 (Auto) 3:40pm 3:49pm Basophils # 0.0 K/uL 0-0.2 07/06/2017 07/06/2017 (Auto) 3:40pm 3:49pm Immature 0.02 K/uL 0-0.40 07/06/2017 07/06/2017 Granulocyte # 3:40pm 3:49pm (Auto) Nucleated Red 0.00 K/uL 0.0-0.012 07/06/2017 07/06/2017 Blood Cells # 3:40pm 3:49pm Random 107 mg/dL 65-115 07/06/2017 07/06/2017 Glucose 3:40pm 4:16pm Blood Urea 17 mg/dL 8-25 07/06/2017 07/06/2017 Nitrogen 3:40pm 4:16pm Creatinine 1.14 mg/dL 0.9-1.6 07/06/2017 07/06/2017 3:40pm 4:16pm Glomerular 47.69 mL/min 07/06/2017 07/06/2017 MULTIPLY RESULT BY 1.210 IF THE PATIENT IS -[place] Filtration 3:40pm 4:16pm Units are mL/min/1.73 m2 Rate Calc > 60 Normal kidney function 30-59 Moderately decreased kidney function 15-29 Severely decreased kidney function <15 End-stage kidney failure BUN/Creatinin 14.9 07/06/2017 07/06/2017 e Ratio 3:40pm 4:16pm Sodium Level 138 mEq/L 133-145 07/06/2017 07/06/2017 3:40pm 4:16pm Potassium 4.2 mEq/L 3.5-5.1 07/06/2017 07/06/2017 Level 3:40pm 4:16pm Chloride 100 mEq/L 98-116 07/06/2017 07/06/2017 Level 3:40pm 4:16pm Carbon 32 mEq/L 22-34 07/06/2017 07/06/2017 Dioxide Level 3:40pm 4:16pm Anion Gap 10.2 6-13 07/06/2017 07/06/2017 3:40pm 4:16pm Calcium Level 9.9 mg/dL 8.2-10.6 07/06/2017 07/06/2017 3:40pm 4:16pm Total Protein 7.7 gm/dL 6.0-8.4 07/06/2017 07/06/2017 3:40pm 4:16pm Albumin 4.3 gm/dL 3.2-5.0 07/06/2017 07/06/2017 3:40pm 4:16pm Globulin 3.4 gm/dL H 2.0-3.0 07/06/2017 07/06/2017 3:40pm 4:16pm Albumin/Globu 1.3 L 1.4-2.4 07/06/2017 07/06/2017 mona Ratio 3:40pm 4:16pm Total 0.4 mg/dL 0.1-1.3 07/06/2017 07/06/2017 Bilirubin 3:40pm 4:16pm Alkaline 87 U/L 35-125 07/06/2017 07/06/2017 Phosphatase 3:40pm 4:16pm Aspartate 25 U/L 5-40 07/06/2017 07/06/2017 Amino Transf 3:40pm 4:16pm (AST/SGOT) Alanine 33 U/L 5-40 07/06/2017 07/06/2017 Aminotransfer 3:40pm 4:16pm ase (ALT/SGPT) Procedures Procedure Status Date Provider(s) EXCISION OF LEFT BREAST, PERCUTANEOUS Completed 02/06/16 GILES TODD M.D. APPROACH, DIAGNOSTIC MAST SIMPLE COMPLETE Completed 02/21/16 GILES TODD M.D. BIOPSY/REMOVAL LYMPH NODES Completed 02/21/16 GILES TODD M.D. Encounters Encounter Location Arrival/Admit Date Discharge/Depart Date Attending Provider Discharged Layla Brown 07/06/17 3:39pm 08/06/17 10:39am [facility] 02/03/17 12:18pm JEAN CLAUDE DONOVAN Referred [facility].Gabrielle. Discharged Layla Brown 02/03/17 11:59am 05/22/17 11:59pm JEAN CLAUDE DONOVAN [facility] S. M.D. Registered Giles Todd 11/03/16 1:45pm GILES TODD Practice O Priscilla.Francesco Discharged Layla Brown 09/23/16 10:53am 01/01/17 11:59pm JEAN CLAUDE DONOVAN Recurring [facility] S. M.D. Discharged Layla Brown 05/13/16 1:58pm 11/22/16 11:59pm BRYCE GOODMAN Recurring [facility]. Hospital A Kathleen Registered Layla Brown 05/13/16 12:46pm BRYCE GOODMAN Referred [facility]. [facility] A Beau Registered Layla Brown 04/21/16 7:39am JEAN CLAUDE DONOVAN Referred [facility]. [facility] S. M.D. Departed Layla Brown 02/21/16 6:33am 02/22/16 1:51pm GILES TODD Surgical Day [facility]. [facility] O Kathleen Care Discharged Layla Brwon 02/04/16 5:50pm 02/06/16 4:25pm PA RIOS Inpatient [facility]. Hospital H M.Gabrielle.
--- OUTSIDE RECORDS SUMMARY | 2018-05-26 18:02 | External Medical Summary | Referral Summary ---
:1950 Author Organization [facility] Address [address] [place] [address] Care Team Providers Name Role Phone Jose C Connor Primary Care Physician Encounter VC Date(s): 02/11/18 - 02/11/18 [facility] [address], [place] [address] Discharge Disposition: 01-Home or Self Care Attending Physician: Jose C Connor MD Admitting Physician: Abdirizak Quach MD Vital Signs Most recent to oldest [Reference Range]: 1 Temperature Oral [35.8-37.3 degC] 36.9 degC (02/11/18 10:40 AM) Peripheral Pulse Rate [60-100 bpm] 77 bpm (02/11/18 12:40 PM) Heart Rate Monitored [60-100 bpm] 90 bpm (02/11/18 10:25 AM) Respiratory Rate [14-20 br/min] 16 br/min (02/11/18 12:40 PM) Blood Pressure [90-140/60-90 mmHg] 95/65 mmHg (02/11/18 12:40 PM) SpO2 93 % (02/11/18 10:40 AM) Problem List Condition Effective Dates Status Health Status Informant DM (diabetes mellitus)(Confirmed) Active patient Allergies, Adverse Reactions, Alerts Substance Reaction Severity Status metFORMIN vomiting Active Medications anastrozole 1 mg oral tablet 1 mg 1 tabs, Oral, Daily, 0 Refill(s) Start Date: 02/11/18 Status: OrderedBasaglar KwikPen 100 units/mL subcutaneous solution 0 Refill(s) Start Date: 02/10/18 Status: OrderedByetta Prefilled Pen 10 mcg/0.04 mL subcutaneous solution 0 Refill(s) Start Date: 02/10/18 Status: Orderedcitalopram 40 mg oral tablet 40 mg 1 tabs, Oral, Daily, 0 Refill(s) Start Date: 02/11/18 Status: Ordereddicyclomine 20 mg oral tablet 0 Refill(s) Start Date: 02/10/18 Status: OrderedFeroSul 325 mg (65 mg elemental iron) oral tablet 325 mg 1 tabs, Oral, BID, 0 Refill(s) Start Date: 02/11/18 Status: OrderedglyBURIDE 2.5 mg, Oral, Daily, 0 Refill(s) Start Date: 02/11/18 Status: OrderedInvega 6 mg oral tablet, extended release 6 mg 1 tabs, Oral, qAM, 0 Refill(s) Start Date: 02/11/18 Status: Orderedlisinopril-hydrochlorothiazide 10 mg-12.5 mg oral tablet 0 Refill(s) Start Date: 02/10/18 Status: Orderedmorphine 15 mg/8 hr oral tablet, extended release 0 Refill(s) Start Date: 02/10/18 Status: OrderedNovoLIN N 100 units/mL subcutaneous suspension 100 units, SubCutaneous, QID, 0 Refill(s) Start Date: 02/11/18 Status: OrderedOLANZapine 20 mg oral tablet 20 mg 1 tabs, Oral, Bedtime (once a day), 0 Refill(s) Start Date: 02/11/18 Status: OrderedVentolin HFA 1 puffs, Inhalation, QID, 0 Refill(s) Start Date: 02/11/18 Status: OrderedVitamin B12 Oral, Daily, 0 Refill(s) Start Date: 02/11/18 Status: OrderedVitamin D3 5,000 Intl_Units, Oral, q7day, 0 Refill(s) Start Date: 02/11/18 Status: Ordered Results Hematology Most recent to oldest [Reference Range]: 1 WBC [4.8-10.8 10*3/uL] 3.9 10*3/uL *LOW* (02/11/18 5:47 AM) RBC [4.00-5.20] 3.73 *LOW* (02/11/18 5:47 AM) Hgb [12.0-16.0 gm/dL] 11.7 gm/dL *LOW* (02/11/18 5:47 AM) Hct [37.0-47.0 %] 36.0 % *LOW* (02/11/18 5:47 AM) MCV [82.0-99.0 fL] 96.5 fL (02/11/18 5:47 AM) MCH [27.0-32.0 pg] 31.4 pg (02/11/18 5:47 AM) MCHC [32.0-36.0 gm/dL] 32.5 gm/dL (02/11/18 5:47 AM) RDW [11.5-14.5 %] 13.6 % (02/11/18 5:47 AM) Platelet [150-400 10*3/uL] 149 10*3/uL *LOW* (02/11/18 5:47 AM) MPV [9.4-12.4 fL] 9.5 fL (02/11/18 5:47 AM) Immature Granulocytes [0.0-1.0 %] 0.2 % (02/11/18 5:47 AM) Neutrophils [51-75 %] 51 % (02/11/18 5:47 AM) Lymphocytes [20-46 %] 36 % (02/11/18 5:47 AM) Monocytes [4-11 %] 8 % (02/11/18 5:47 AM) Eosinophils [0-4 %] 4 % (02/11/18 5:47 AM) Basophils [0-2 %] 0 % (02/11/18 5:47 AM) Neutro Absolute [1.90-7.00] 2.08 (02/11/18 5:47 AM) Lymph Absolute [0.80-3.30] 1.45 (02/11/18 5:47 AM) [place] Absolute [0.30-1.00] 0.34 (02/11/18 5:47 AM) Eos Absolute [0.00-0.50] 0.16 (02/11/18 5:47 AM) Baso Absolute [0.00-0.20] 0.01 (02/11/18 5:47 AM) Nucleated RBC Automated [0 /100 WBC] 0.0 /100 WBC (02/11/18 5:47 AM) Coagulation Most recent to oldest [Reference Range]: 1 INR [0.9-1.2] 1.1 (02/11/18 5:47 AM) PTT [25.0-35.0 seconds] 27.2 seconds (02/11/18 5:47 AM) Chemistry Most recent to oldest [Reference Range]: 1 Blood Glucose, Capillary [70-100 mg/dL] 55 mg/dL *LOW* (02/11/18 8:12 AM) Procedures Procedure Date Related Diagnosis Body Site Status Biopsy, bone, trocar, or needle; deep 02/11/18 Completed (eg, vertebral body, femur)
--- OUTSIDE RECORDS SUMMARY | 2018-05-26 18:02 | External Medical Summary | Continuity of Care Document ---
:1950 Author Organization [facility] Allergies Active Description Code Type Severity Reaction Onset Reported/ Identified Relationship Clinical to Patient Status Yes BACTRIM 44058 Drug Moderate N/A 550 Aller gy Yes CIPRO 16073 Drug Moderate N/A 794 Aller gy Yes METFORMIN 08048 Drug Moderate N/A 157 Aller gy Yes metFORMIN NKMA N/A vomiting Medications Medication Packaging Start Stop Route Dosage Sig Date Date dicyclomine(dicyc 8 0 Refill(s) lomine 20 mg oral tablet) morphine(morphine 8 0 Refill(s) 15 mg/8 hr oral tablet, extended release) exenatide(Byetta 8 0 Refill(s) Prefilled Pen 10 mcg/0.04 mL subcutaneous solution) lisinopril-hydroC 8 0 Refill(s) HLOROthiazide(lis inopril-hydrochlo rothiazide 10 mg-12.5 mg oral tablet) insulin 8 0 Refill(s) glargine(Basaglar KwikPen 100 units/mL subcutaneous solution) 1 tabs Oral 40 mg citalopram(citalo 8 40 mg=1 pram 40 mg oral tabs, Oral, tablet) Daily, 0 Refill(s) 1 tabs Oral 6 mg paliperidone(Inve 8 6 mg=1 tabs, ga 6 mg oral Oral, qAM, 0 tablet, extended Refill(s) release) 1 tabs Oral 20 mg OLANZapine(OLANZa 8 20 mg=1 pine 20 mg oral tabs, Oral, tablet) Bedtime (once a day), 0 Refill(s) 1 tabs Oral 1 mg anastrozole(anast 8 1 mg=1 tabs, rozole 1 mg oral Oral, Daily, tablet) 0 Refill(s) Oral 2.5 mg glyBURIDE(glyBURI 8 2.5 mg, DE) Oral, Daily, 0 Refill(s) SubCutaneous 100 units insulin isophane 8 100 units, (NPH)(NovoLIN N SubCutaneous 100 units/mL , QID, 0 subcutaneous Refill(s) suspension) 1 mL 02/12/20 IV Push 1 mg midazolam(Versed) 8 18 1 mg=1 mL, IV Push, q5min, PRN: Sedation 1 mL 02/12/20 IV Push 50 mcg fentaNYL(Sublimaz 8 18 50 mcg=1 mL, e) IV Push, q5min, PRN: Sedation 500 mL 02/12/20 IV Sodium Chloride 8 18 KVO, IV, 0.9%(Sodium Stop: Chloride 0.9% 500 02/11/18 mL) 23:59:00 CDT 2 tabs 02/12/20 Oral HYDROcodone-aceta 8 18 2 tabs, minophen(Dimmitt 5 Oral, q4hr, mg-325 mg oral PRN: Pain tablet) 2 mL 02/12/20 IV Push 4 mg ondansetron(Zofra 8 18 4 mg=2 mL, n) IV Push, q4hr, PRN: Nausea Problems Date Dx Attending Type Code Diagnosis Diagnosed By Coded 12/29/2017 SUSAN HERNANDEZ X26051 Pain in right hip 12/29/2017 SUSAN HERNANDEZ L86981 Pain in right lower leg 01/25/2018 NAILA KNOX Y68910 Pain in right thigh 01/25/2018 NAILA KNOX M899 Disorder of bone, unspecified 01/25/2018 NAILA KNOX S Z853 Personal history of malignant neoplasm of breast 01/25/2018 NAILA KNOX M7631 Iliotibial band syndrome, right leg 01/31/2018 REX Wnag, Other 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 01/31/2018 REX Wang, Other Z51.0 ENCOUNTER FOR BRYCE A ANTINEOPLASTIC RADIATION THERAPY 02/16/2018 Donovan Pavan Final 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 02/16/2018 Donovan Pavan Final C79.51 Secondary malignant neoplasm of bone 02/16/2018 Donovan Pavan Reason M89.9 Disorder of bone, unspecified 02/16/2018 Donovan Pavan Final Z17.0 Estrogen receptor positive status [ER+] 02/16/2018 Donovan Pavan Final 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 02/16/2018 Donovanburt Pavan Final Z79.899 Other mcfp (current) drug therapy 02/16/2018 Donovan,Jean Claude Final Z88.8 Allergy status to other drugs, medicaments and biological substances status 02/16/2018 Donovanburt Pavan Final Z79.899 Other mcfp (current) drug therapy 02/16/2018 Donovan Pavan Final Z88.8 Allergy status to other drugs, medicaments and biological substances status 04/21/2018 Donovanburt Pavan Final Z88.8 Allergy status to other drugs, medicaments and biological substances status 04/27/2018 SUSAN HERNANDEZ M6281 Muscle weakness (generalized) 04/28/2018 SUSAN HERNANDEZ M6281 Muscle weakness (generalized) 05/17/2018 ZION Wang, Other C50.412 MALIG NEOPLASM OF JEAN CLAUDE S. UPPER-OUTER QUADRANT OF LEFT FEMALE BREAST 05/17/2018 ZION Wang, Other C50.412 MALIG NEOPLASM OF JEAN CLAUDE S. 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 Results Test Result Range CBC With Platelet and Differential - 02/11/18 05:47 HCT 36.0 % 37.0-47.0 HGB 11.7 g/dL 12.0-16.0 MCH 31.4 pg 27.0-32.0 MCHC 32.5 g/dL 32.0-36.0 MCV 96.5 fL 82.0-99.0 MPV 9.5 fL 9.4-12.4 Platelet Count 149 K/uL 150-400 RBC 3.73 10*6/uL 4.00-5.20 RDW 13.6 % 11.5-14.5 WBC 3.9 K/uL 4.8-10.8 PTT/PT (INR) - 02/11/18 05:47 INR 1.1 NA 0.9-1.2 PTT 27.2 seconds 25.0-35.0 Glucose NPT - 02/11/18 05:50 Glucose NPT 71 mg/dL 70-100 Glucose NPT - 02/11/18 07:40 Glucose NPT 43 mg/dL 70-100 Glucose NPT - 02/11/18 07:52 Glucose NPT 51 mg/dL 70-100 Glucose NPT - 02/11/18 08:12 Glucose NPT 55 mg/dL 70-100 Glucose NPT - 05/17/18 17:40 Glucose NPT 152 mg/dL 70-100 Glucose NPT - 05/17/18 22:10 Glucose NPT 285 mg/dL 70-100 Glucose NPT - 05/18/18 05:17 Glucose NPT 177 mg/dL 70-100 CBC With Platelet and Differential - 05/18/18 06:30 Absolute Basophils 0.03 10*3/uL 0.00-0.20 Absolute Eosinophils 0.08 10*3/uL 0.00-0.50 Absolute Lymphocytes 0.41 10*3/uL 0.80-3.30 Absolute Monocytes 0.17 10*3/uL 0.30-1.00 Absolute Neutrophils 1.52 10*3/uL 1.90-7.00 Basophils 1 % 0-2 Eosinophils 4 % 0-4 HCT 25.2 % 37.0-47.0 HGB 8.5 g/dL 12.0-16.0 Immature Granulocytes 0.0 % 0.0-1.0 Lymphocytes 19 % 20-46 MCH 36.2 pg 27.0-32.0 MCHC 33.7 g/dL 32.0-36.0 MCV 107.2 fL 82.0-99.0 Monocytes 8 % 4-11 MPV 8.4 fL 9.4-12.4 Neutrophils 69 % 51-75 Nucleated RBC Automated 0.0 /100 WBC Platelet Count 176 K/uL 150-400 RBC 2.35 10*6/uL 4.00-5.20 RDW 17.3 % 11.5-14.5 WBC 2.2 K/uL 4.8-10.8 Basic Metabolic Panel (BMP) - 05/18/18 06:30 Anion Gap 7 mEq/L 3-20 BUN 27 mg/dL 4-20 Calcium 8.5 mg/dL 8.6-10.0 Chloride 106 mEq/L 99-109 CO2 24 mEq/L 22-32 Creatinine 1.22 mg/dL 0.44-1.03 Glucose 178 mg/dL 70-100 Potassium 4.9 mEq/L 3.6-5.1 Sodium 137 mEq/L 136-144 eGFR - 05/18/18 06:30 eGFR 44 mL/min >60 Glucose NPT - 05/18/18 12:07 Glucose NPT 320 mg/dL 70-100 Glucose NPT - 05/18/18 17:21 Glucose NPT 250 mg/dL 70-100 Glucose NPT - 05/18/18 21:53 Glucose NPT 215 mg/dL 70-100 CBC With Platelet and Differential - 05/19/18 04:50 HCT 24.7 % 37.0-47.0 HGB 8.2 g/dL 12.0-16.0 MCH 36.0 pg 27.0-32.0 MCHC 33.2 g/dL 32.0-36.0 MCV 108.3 fL 82.0-99.0 MPV 8.3 fL 9.4-12.4 Platelet Count 160 K/uL 150-400 RBC 2.28 10*6/uL 4.00-5.20 RDW 17.1 % 11.5-14.5 WBC 6.0 K/uL 4.8-10.8 Basic Metabolic Panel (BMP) - 05/19/18 04:50 Anion Gap 3 mEq/L 3-20 BUN 20 mg/dL 4-20 Calcium 7.8 mg/dL 8.6-10.0 Chloride 111 mEq/L 99-109 CO2 27 mEq/L 22-32 Creatinine 1.12 mg/dL 0.44-1.03 Glucose 130 mg/dL 70-100 Potassium 4.2 mEq/L 3.6-5.1 Sodium 141 mEq/L 136-144 eGFR - 05/19/18 04:50 eGFR 48 mL/min >60 Glucose NPT - 05/19/18 05:48 Glucose NPT 160 mg/dL 70-100 Glucose NPT - 05/19/18 09:51 Glucose NPT 139 mg/dL 70-100 Glucose NPT - 05/19/18 15:59 Glucose NPT 286 mg/dL 70-100 CBC With Platelet and Differential - 05/20/18 05:47 HCT 22.8 % 37.0-47.0 HGB 7.5 g/dL 12.0-16.0 MCH 35.7 pg 27.0-32.0 MCHC 32.9 g/dL 32.0-36.0 MCV 108.6 fL 82.0-99.0 MPV 8.2 fL 9.4-12.4 Platelet Count 151 K/uL 150-400 RBC 2.10 10*6/uL 4.00-5.20 RDW 16.4 % 11.5-14.5 WBC 4.4 K/uL 4.8-10.8 Basic Metabolic Panel (BMP) - 05/20/18 05:47 Anion Gap 5 mEq/L 3-20 BUN 18 mg/dL 4-20 Calcium 7.5 mg/dL 8.6-10.0 Chloride 110 mEq/L 99-109 CO2 23 mEq/L 22-32 Creatinine 0.96 mg/dL 0.44-1.03 Glucose 193 mg/dL 70-100 Potassium 4.0 mEq/L 3.6-5.1 Sodium 138 mEq/L 136-144 eGFR - 05/20/18 05:47 eGFR 58 mL/min >60 Glucose NPT - 05/20/18 12:11 Glucose NPT 307 mg/dL 70-100 Glucose NPT - 05/20/18 20:13 Glucose NPT 298 mg/dL 70-100 Glucose NPT - 05/21/18 05:29 Glucose NPT 184 mg/dL 70-100 CBC With Platelet and Differential - 05/21/18 06:33 Absolute Basophils 0.03 10*3/uL 0.00-0.20 Absolute Eosinophils 0.07 10*3/uL 0.00-0.50 Absolute Lymphocytes 0.74 10*3/uL 0.80-3.30 Absolute Monocytes 0.36 10*3/uL 0.30-1.00 Absolute Neutrophils 2.27 10*3/uL 1.90-7.00 Basophils 1 % 0-2 Eosinophils 2 % 0-4 HCT 24.8 % 37.0-47.0 HGB 8.2 g/dL 12.0-16.0 Immature Granulocytes 0.6 % 0.0-1.0 Lymphocytes 21 % 20-46 MCH 35.5 pg 27.0-32.0 MCHC 33.1 g/dL 32.0-36.0 MCV 107.4 fL 82.0-99.0 Monocytes 10 % 4-11 MPV 8.7 fL 9.4-12.4 Neutrophils 65 % 51-75 Nucleated RBC Automated 1.0 /100 WBC Platelet Count 167 K/uL 150-400 RBC 2.31 10*6/uL 4.00-5.20 RDW 16.4 % 11.5-14.5 WBC 3.5 K/uL 4.8-10.8 Basic Metabolic Panel (BMP) - 05/21/18 06:33 Anion Gap 7 mEq/L 3-20 BUN 14 mg/dL 4-20 Calcium 8.5 mg/dL 8.6-10.0 Chloride 106 mEq/L 99-109 CO2 23 mEq/L 22-32 Creatinine 0.94 mg/dL 0.44-1.03 Glucose 176 mg/dL 70-100 Potassium 4.4 mEq/L 3.6-5.1 Sodium 136 mEq/L 136-144 eGFR - 05/21/18 06:33 eGFR 59 mL/min >60 Glucose NPT - 05/21/18 11:25 Glucose NPT 282 mg/dL 70-100 Glucose NPT - 05/21/18 17:24 Glucose NPT 106 mg/dL 70-100 Glucose NPT - 05/21/18 21:03 Glucose NPT 99 mg/dL 70-100 Glucose NPT - 05/22/18 01:00 Glucose NPT 172 mg/dL 70-100 Glucose NPT - 05/22/18 05:13 Glucose NPT 212 mg/dL 70-100 CBC With Platelet and Differential - 05/22/18 05:43 Absolute Basophils 0.05 10*3/uL 0.00-0.20 Absolute Eosinophils 0.04 10*3/uL 0.00-0.50 Absolute Lymphocytes 0.70 10*3/uL 0.80-3.30 Absolute Monocytes 0.34 10*3/uL 0.30-1.00 Absolute Neutrophils 1.24 10*3/uL 1.90-7.00 Basophils 2 % 0-2 Eosinophils 2 % 0-4 HCT 24.6 % 37.0-47.0 HGB 8.3 g/dL 12.0-16.0 Immature Granulocytes 0.8 % 0.0-1.0 Lymphocytes 29 % 20-46 MCH 35.9 pg 27.0-32.0 MCHC 33.7 g/dL 32.0-36.0 MCV 106.5 fL 82.0-99.0 Monocytes 14 % 4-11 MPV 8.7 fL 9.4-12.4 Neutrophils 52 % 51-75 Nucleated RBC Automated 2.0 /100 WBC Platelet Count 166 K/uL 150-400 RBC 2.31 10*6/uL 4.00-5.20 RDW 15.8 % 11.5-14.5 WBC 2.4 K/uL 4.8-10.8 Basic Metabolic Panel (BMP) - 05/22/18 05:43 Anion Gap 5 mEq/L 3-20 BUN 19 mg/dL 4-20 Calcium 9.0 mg/dL 8.6-10.0 Chloride 104 mEq/L 99-109 CO2 26 mEq/L 22-32 Creatinine 1.09 mg/dL 0.44-1.03 Glucose 211 mg/dL 70-100 Potassium 4.2 mEq/L 3.6-5.1 Sodium 135 mEq/L 136-144 eGFR - 05/22/18 05:43 eGFR 50 mL/min >60 Crossmatch Reportable for Anila - 05/22/18 11:48 Crossmatch Reportable for Anila See Transfusion NA Glucose NPT - 05/22/18 13:13 Glucose NPT 263 mg/dL 70-100 Glucose NPT - 05/22/18 16:47 Glucose NPT 229 mg/dL 70-100 ABO and RH - 05/22/18 19:12 ABO and Rh NA Antibody Screen - 05/22/18 19:12 Antibody Screen NA Red Blood Cells - 05/22/18 19:12 Red Blood Cells NA Glucose NPT - 05/22/18 22:27 Glucose NPT 220 mg/dL 70-100 CBC With Platelet and Differential - 05/23/18 03:54 HCT 24.9 % 37.0-47.0 HGB 8.3 g/dL 12.0-16.0 MCH 36.1 pg 27.0-32.0 MCHC 33.3 g/dL 32.0-36.0 MCV 108.3 fL 82.0-99.0 MPV 8.9 fL 9.4-12.4 Platelet Count 160 K/uL 150-400 RBC 2.30 10*6/uL 4.00-5.20 RDW 16.2 % 11.5-14.5 WBC 5.1 K/uL 4.8-10.8 Basic Metabolic Panel (BMP) - 05/23/18 03:54 Anion Gap 6 mEq/L 3-20 BUN 21 mg/dL 4-20 Calcium 8.9 mg/dL 8.6-10.0 Chloride 105 mEq/L 99-109 CO2 25 mEq/L 22-32 Creatinine 1.05 mg/dL 0.44-1.03 Glucose 207 mg/dL 70-100 Potassium 4.3 mEq/L 3.6-5.1 Sodium 136 mEq/L 136-144 eGFR - 05/23/18 03:54 eGFR 52 mL/min >60 Glucose NPT - 05/23/18 06:13 Glucose NPT 190 mg/dL 70-100 Glucose NPT - 05/23/18 11:05 Glucose NPT 265 mg/dL 70-100 Glucose NPT - 05/23/18 12:49 Glucose NPT 227 mg/dL 70-100 Glucose NPT - 05/23/18 16:43 Glucose NPT 194 mg/dL 70-100 Encounters ACCT No. Visit Discharge Status Pt. Type Provider Facility Loc./Unit Complaint Date/Time [id number] 04/27/2018 04/27/2018 DIS Outpatient MARY, PT 12:33:00 14:00:00 SUSAN [id number] 01/25/2018 01/25/2018 CLS Outpatient LISETTE, MRI LOW 09:07:00 23:59:59 NAILA Miller EXT JNT WO CONTR RT / MRI LUMBA [id number] 01/24/2018 01/24/2018 CLS Outpatient LISETTE, PHYS 10:46:00 23:59:59 NAILA Miller THERAPY [id number] 12/29/2017 12/29/2017 CLS Outpatient MARY, XR RT HIP 13:26:00 23:59:59 JAYNETTE PELVIS [id number] 12/01/2016 ACT Unknown [id number] 08:17:00 [id number] 09/29/2016 ACT Unknown [id number] 08:54:00 [id number] 08/24/2016 ACT Unknown [id number] 14:44:00 [id number] 03/05/2016 ACT Unknown [id number] 14:19:00 [id number] 02/19/2016 ACT Unknown [id number] 11:00:00 [id number] 12/06/2015 ACT Unknown [id number] 09:50:00 [id number] 11/08/2015 ACT Unknown [id number] 12:49:00 [id number] 11/21/2014 ACT Unknown [id number] 09:46:00 [id number] 05/11/2014 ACT Unknown [id number] 11:13:00 [id number] 04/26/2014 ACT Unknown [id number] 08:54:00 [id number] 12/13/2013 ACT Unknown [id number] 08:30:00 [id number] 05/17/2018 05/17/2018 CLS Outpatient DONOVAN DI 91 07:52:00 23:59:59 M.D., JEAN CLAUDE Reynolds [id number] 04/19/2018 04/19/2018 CLS Outpatient DONOVAN LAB-CCK 75 14:18:00 23:59:59 M.D., JEAN CLAUDE Reynolds [id number] 02/16/2018 02/16/2018 CLS Outpatient LUDER RO 52 13:36:00 23:59:59 M.D., BRYCE Miller [id number] 01/31/2018 01/31/2018 CLS Outpatient LUDER DI 89 14:58:00 23:59:59 M.D., BRYCE Miller [id number] 01/17/2018 01/17/2018 CLS Outpatient DONOVAN DI 45 12:16:00 23:59:59 M.D., JEAN CLAUDE Reynolds [id number] 02/11/2018 02/11/2018 [facility] 05:06[facility]00 [facility] [id number] 05/17/2018 Document 93 14:06:00 Registrati on [id number] 02/12/2018 Document 1806 05:18:06 Registrati on [id number] 02/11/2018 Document 1937 05:19:37 Registrati on
--- NOTE | 2018-05-26 18:11 | IRU History & Physical Report ---
HPI IRU Date: Date: 05/26/18 Time: 1807 Chief complaint: I broke my hip HPI: Sheri: Ms. Wade is a pleasant 67-year-old female referred by Romulo Mccormick MD at [facility]. Her oncologist is Jose C Connor MD in [place]. She has a history of breast cancer diagnosed 2 years ago. She was treated with left mastectomy/radiation and anastrozole. She has metastatic disease to the bone in January 2018. 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 She also heard a pop at that time. She was noted to have metastatic disease and received radiation therapy to the right hip. Patient's pain in the right hip continued to worsen and her functional status declined. She transitioned to a walker and subsequently a wheelchair. MRI was ordered revealing a right acetabular fracture. She was admitted to [facility] on 05/18/2018 for surgical repair of the pathologic fracture and her intractable pain. Surgery was on 05/24/2018 where she had saucerization of the right acetabulum and total hip arthroplasty. She is weightbearing as tolerated and is to be on Lovenox while in the hospital and then transition to aspirin twice daily for a total of 30 days when she goes home. Diagnosis at that time was metastatic breast carcinoma with pathologic stress fracture at the right acetabulum with severe degenerative joint disease. Surgeon was Sathya Estrada D.O. She has developed some acute metabolic encephalopathy during the hospitalization felt likely to be related to postoperative delirium from multiple pain medications and anesthesia. In addition the patient demonstrated acute kidney injury. Blood cultures have been negative and urine culture and chest x-ray been negative along with a head CT scan. She has developed some pancytopenia and chemotherapy has been on hold. She did require transfusion of 2 units of packed red blood cells on 05/25/2018. The patient does have history of schizophrenia and is on Invega in this regard. The patient was admitted on May 18 and surgery was delayed until May 24 because of pancytopenia. She did receive G-CSF for her leukopenia. The patient has history of diabetes mellitus type 2. She had been hypoglycemic at the time of admission. However her blood sugars have been around 200 or slightly less since that time. (May 23: 207, May 24: 247, May 25: 158; May 26: 164) These are random sugars. She states that she checks her blood sugars perhaps once daily at home and they run around 180. She does not know what her A1c is running. Home dose is 30 units of Basaglar at home every evening and 30 units of NovoLog with each meal. The patient lives with her in [place], [place]. She does typically use a rolling walker at home. At home she was independent with eating and grooming, modified independent for bathing but required some minimal assistance for upper and lower body dressing. She was modified independent for toileting, transfers, walking with a rolling walker 75 feet. Currently the patient requires supervision for eating, minimum assistance for grooming, moderate assistance for bathing, minimum assistance for upper body dressing but maximum assistance for lower body dressing and toileting. She requires moderate assistance for transfers and walking with a rolling walker only 2 feet. The patient currently has hemoglobin of 7.3 which may be either due to chemotherapy-induced pancytopenia versus acute blood loss anemia versus anemia of chronic disease. This will be monitored carefully. White blood cell count on May 25 is 5300, platelet count 114,000. Creatinine has been as high as 1.26 but is now down to 1.07. Per orthopedics, the patient is to be weightbearing as tolerated but to follow posterior hip precautions. The following medical conditions are noted and require active monitoring and/or management: 1. Status post repair of right acetabular pathologic fracture secondary to metastatic breast cancer. 2. Recent pancytopenia but with continued anemia at 7.3 g percent. This may be due to chronic disease, chemotherapy or acute blood loss anemia from her fracture. 3. Metastatic breast cancer 4. Recent acute kidney injury with current improvement in kidney function. 5. Diabetes mellitus type 2 with variable control. She was hypoglycemic upon admission in [place] but her sugars have been elevated as noted above. 6. Benign essential hypertension with recent elevated blood sugars and recent addition of medications. The following therapies will be needed: 1. Physical therapy: for transfers and ambulation and stairs. 2. Occupational therapy: for ADL's and transfers. 3. Medical management: for the above conditions. 4. 24 hour Rehabilitation Nursing to monitor and address the following: Blood sugar monitoring, blood pressure monitoring, reorientation in the event of delirium/confusion, provision of adequate pain medication 5. Dietitian: In view of the diabetes. PFSH 1. Schizophrenia 2. Metastatic breast cancer status post left mastectomy with radiation therapy and anastrozole therapy. Metastasis to right pelvic area acetabulum with resultant pathologic fracture. 3. Benign essential hypertension 4. Diabetes mellitus type 2 on snf insulin, not controlled based on home blood sugar measurements 5. Obstructive sleep apnea with patient declining CPAP 6. Obesity Surgical History: 1. Left mastectomy for cancer. 2. D and C. 3. Prior tubal ligation. 4. Hysterectomy. 5. Right total hip replacement with saucerization of acetabulum Family History: Patient's father age 66 from heart disease and kidney disease. Mother age 79 with thoracic aneurysm. 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 She moved to [facility] with her about 8 years ago. Review of Systems - Constitutional Constitutional: Present: fatigue. Absent: anorexia, chills, fever(s), headache( s), lethargy, malaise, night sweats, weakness, weight gain, weight loss - EENMT Eyes: Absent: blurry vision, change in vision, diplopia Mouth/Throat: Absent: changes in swallowing, painful swallowing, change in taste , bleeding gums, change in voice - Cardiovascular Cardiovascular: Absent: chest pain, palpitations, syncope, dyspnea on exertion, orthopnea, edema, cyanosis, heart murmur Rhythm: Present: regular rhythm Vascular: Absent: intermittent claudication, pedal edema, unilateral swelling - Respiratory Respiratory: Absent: cough, dyspnea, hemoptysis, dyspnea on exertion, wheezing, pain on inspiration, chest congestion, excessive phlegm production - Gastrointestinal Gastrointestinal: Present: constipation. Absent: abdominal pain, change in bowel habits, diarrhea, dyspepsia, dysphagia, early satiety, hematochezia, melena, nausea, vomiting - Genitourinary Genitourinary: Present: urinary incontinence - Musculoskeletal Musculoskeletal: Present: arthralgias. Absent: abnormal gait, back pain, joint swelling, limited range of motion, muscle weakness - Integumentary/Breasts Integumentary: Absent: alopecia, erythema, lesions, pruritus, rash, jaundice - Neurological Neurological: Present: weakness. Absent: abnormal gait, abnormal movements, abnormal speech, confusion, convulsions, dizziness, focal weakness, frequent falls, headache(s), loss of vision, memory loss, numbness, paresthesias, tremor( s) - Psychiatric Psychiatric: Absent: abnormal sleep pattern, anxiety, depression - Endocrine Endocrine: Absent: cold intolerance, flushing, heat intolerance, palpitations - Hematologic/Lymphatic Hematologic/Lymphatic: Absent: easy bleeding, easy bruising, lymphadenopathy - Allergic/Immunologic Allergic/Immunologic: Absent: urticaria Medications Allergies Allergy/AdvReac Type Severity Reaction Status Date / Time metformin Allergy Verified 05/26/18 18:19 Results IRU - Labs Labs: Have reviewed outside records from via [facility]. Exam - Constitutional Present: no acute distress, well nourished, well developed, morbidly obese, cooperative - Routine HEENT Exam Head: Present: normocephalic, atraumatic. Absent: cushingoid faces, abrasion, laceration, hematoma Eye: Present: EOMI, PERRL. Absent: conjunctival icterus, scleral injection, periorbital swelling, nystagmus ENT: Present: mucous membranes dry, oropharynx clear, dentition normal - Routine Neck Exam Present: supple, full ROM, trachea midline. Absent: lymphadenopathy, thyromegaly, tenderness, swelling - Routine Chest/Breast/Axilla Exam Chest wall: Absent: tenderness, mass Axillae: Absent: lymphadenopathy, mass - Routine Respiratory Exam Present: CTA bilaterally. Absent: accessory muscle use, decreased breath sounds , prolonged expiratory phase, rales, respiratory distress, rhonchi, stridor, wheezes, crackles, distant breath sounds - Routine Cardiovascular Exam Present: RRR, S1, S2, murmur (grade 1-2/6 left sternal border). Absent: gallop , S3, S4, click, irregular rhythm - Routine Abdominal Exam Present: soft, normoactive bowel sounds, non distended, non tender. Absent: rebound, guarding, firm, rigid, organomegaly, mass, hernia, wound - Routine Extremities Exam Present: no edema, non tender, pulses intact, normal capillary refill. Absent: cyanosis, clubbing Comments: Wound with wound VAC involving right hip area. No surrounding erythema. - Routine Back/Spine/Pelvis Exam Back/Spine: Absent: scoliosis, kyphosis - Routine Skin Exam Present: intact, dry, warm, wounds (right posterior hip area.). Absent: cyanosis, erythema, pallor, mottling, petechiae, urticaria, lesions, jaundice - Routine Neurological Exam Present: alert, oriented X3, CN II-XII intact, moving all extremities, normal speech - Routine Psychiatric Exam Present: normal affect, normal thought process, cooperative, good insight, good judgment. Absent: depressed, anxious Sepsis Assessment - Evaluation Severe Sepsis: none seen IRU A/P (1) Other specified fracture of right acetabulum, initial encounter for closed fracture Current visit: Yes Status: Acute Patient is status post pathologic fracture of the right acetabulum. This has been treated with initially radiation therapy and subsequently surgery including a right total hip arthroplasty with saucerization of the right acetabulum. She has pain at a 7 out of 10 in intensity when she is up and about. She is to be full weightbearing on the hip but with posterior hip precautions observed. (2) Anemia in chronic illness Current visit: Yes Status: Chronic Her anemia is either due to anemia of chronic disease or pancytopenia related to medication usage or possibly acute blood loss. At this point her white count has returned to normal from being suppressed. Her platelet count is 114,000 recently and her hemoglobin is 7.9. We will monitor this carefully. (3) Benign essential hypertension Current visit: Yes Status: Chronic (4) DM w/o complication type II, uncontrolled Qualifiers: Diabetes mellitus long term care pharmacist insulin use: with snf use Diabetes mellitus complication status: without complication Qualified Code(s): E11.65 - Type 2 diabetes mellitus with hyperglycemia; Z79.4 - terminal make up operator (current) use of insulin Current visit: Yes Status: Chronic (5) Metastatic breast carcinoma Current visit: Yes Status: Chronic DVT Prophylaxis: SCD's, Lovenox Resuscitation Status: Full Code - Course Hospital Course: Nadeem Ring MD: - Interventions to Obtain Goals Goals Progress/Modifications: This medically complex patient requires 24 hour rehabilitation nursing to monitor her blood sugars to prevent hypoglycemia and excessive hyperglycemia. She requires close wound monitoring with wound VAC in place. In addition she requires monitoring of her blood pressures as they have been running a bit high. She requires a multidisciplinary approach with PT and OT and medical supervision.
--- NOTE | 2018-05-26 18:14 | IRU 24Hr Post Admit Eval ---
24 Hr Post Admission Physical - Relevant Changes Relevant Changes: No Reviewed: I have reviewed the patient's information and concur with the finding and results of the pre-admission screen. Certification: I certify the patient for rehabilitation. - Patient Condition (1) Other specified fracture of right acetabulum, initial encounter for closed fracture Status: Acute Code(s): S32.491A - Other specified fracture of right acetabulum , initial encounter for closed fracture Classification: IRF Tx That Should Address Diagnosis, Diagnosis Requiring Medical Follow Up Additional Information: The patient had a pathologic fracture of the right acetabulum occurring in December 2017. She has recently undergone surgical repair of this with total hip arthroplasty on the right along with saucerization of the right acetabulum. She continues to have pain and weakness in the right lower extremity. 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 insulin use: with nursing home use Diabetes mellitus complication status: without complication Qualified Code(s): E11.65 - Type 2 diabetes mellitus with hyperglycemia; Z79.4 - [facility] (current) use of insulin Code(s): E11.65 - Type 2 diabetes mellitus with hyperglycemia Classification: Present on IRF Admission, IRF Tx That Should Address Diagnosis, Diagnosis Requiring Medical Follow Up (4) Acute kidney injury Status: Acute Code(s): N17.9 - Acute kidney failure, unspecified Classification: Diagnosis Requiring Medical Follow Up (5) Benign essential hypertension Status: Chronic Code(s): I10 - Essential (primary) hypertension Classification: Present on IRF Admission, IRF Tx That Should Address Diagnosis, Diagnosis Requiring Medical Follow Up (6) Anemia in chronic illness Status: Chronic Code(s): D63.8 - Anemia in other chronic diseases classified elsewhere Classification: Present on IRF Admission, IRF Tx That Should Address Diagnosis, Diagnosis Requiring Medical Follow Up Additional Information: The patient has also had pancytopenia recently, presumably related to chemotherapy. Most recent platelet count available is 114,000. Most recent total white count is normal. Differential is pending. - Prior Functional Status Lives With: Spouse Residence Type: Apartment/Private Home Assitive Devices: Four Wheeled Walker Prior Functional Status: Indep. at home or school, Depend. at home or school, Depend. w/ IADL - Current Functional Status Current Level of Function: Currently the patient requires supervision for eating, minimum assistance for grooming, moderate assistance for bathing, minimum assistance for upper body dressing but maximum assistance for lower body dressing and toileting. She requires moderate assistance for transfers and walking with a rolling walker only 2 feet. Failed Alternative Therapy: Arrived from Acute Care Patient Requirements: The patient requires oversight by rehabilitation physician to manage their rehabilitation treatment plan and multidisciplinary approach to care that can only be provided in an IRF and requires a multidisciplinary approach to care, provided by professional PTs, OTs, STs, dieticians, RTs, rehabilitation nurses and is not available in lesser levels of care. Limitations Req: Mobility Impairment, ADL Impairment Physical Therapy Minutes: 90 Occupational Therapy Minutes: 90 Therapy: The patient is to receive therapy at least 5 days a week. - Complications/Comorbidities Impact on Functional Outcomes: The patient's discomfort related to her right hip fracture and repair may negatively impact her functional outcome. Barriers to Discharge: Weakness, Endurance, Pain Control - Plan to Avoid Complications Plan to Avoid Complications: The patient cannot receive this care in a lesser intensive setting such as Long-Term or Outpatient Therapy due to the patient requiring the following : This patient requires close monitoring of her blood sugars which have been elevated recently. She requires monitoring of her blood count in view of her recent pancytopenia related to medications and anemia of chronic disease. She requires monitoring of her pain to allow her to participate in therapy. Finally , she requires a multidisciplinary approach with physical therapy and occupational therapy in order to allow her to return to her independent level of functioning.
[2018-05-26 18:18] VITALS: BMI 40.6
[2018-05-26] MEDS ORDERED: ERGOCALCIFEROL 50,000 UNIT CAPSULE PO SCH (20:30)
[2018-05-26] MEDS ORDERED: NON-FORMULARY MEDICATION 1 EACH EACH (Ferrous Sulfate [Ferrous Sulfate] 325 MG) PO SCH (21:00)
[2018-05-26] MEDS: DOCUSATE SODIUM 100 MG CAPSULE PO SCH (22:15)
[2018-05-26] MEDS: INSULIN DETEMIR 100unit/ml INJECTION SQ SCH (22:15)
[2018-05-27] MEDS ORDERED: FALL RISK - PHARMACY CONSULT MC ONE (01:57)
[2018-05-27] MEDS ORDERED: ALBUTEROL 2.5mg/3ml (0.083%) NEB AEROSOL PRN (06:33)
[2018-05-27] MEDS ORDERED: INSULIN ASPART 100unit/ml INJECTION SQ SCH ×3 (08:00→17:00)
[2018-05-27] MEDS: FERROUS SULFATE 324 MG TABLET PO SCH (08:59)
[2018-05-27] MEDS ORDERED: NON-FORMULARY MEDICATION 1 EACH EACH (Omega-3/Dha/Epa/Fish Oil [Fish Oil Dr 500 Mg Softgel PO SCH (09:00)
[2018-05-27] MEDS: AMLODIPINE 5 MG TABLET PO SCH (09:00)
[2018-05-27] MEDS ORDERED: NON-FORMULARY MEDICATION 1 EACH EACH (Calcium Carbonate [Calcium] 500 MG) PO SCH (09:00)
[2018-05-27] MEDS ORDERED: OLANZAPINE PO SCH (09:00)
[2018-05-27] MEDS ORDERED: CYANOCOBALAMIN PO SCH (09:00)
[2018-05-27] MEDS: ANASTROZOLE 1 MG TABLET PO SCH (09:00)
[2018-05-27] MEDS: DICYCLOMINE 20mg TABLET PO SCH (09:00)
[2018-05-27] MEDS: DOCUSATE SODIUM 100 MG CAPSULE PO SCH ×2 (09:00→20:30)
[2018-05-27] MEDS ORDERED: GLYBURIDE 2.5 MG TABLET PO SCH (09:00)
[2018-05-27] MEDS ORDERED: PALIPERIDONE ER 1.5mg TABLET PO SCH ×2 (09:00→09:30)
[2018-05-27] MEDS ORDERED: PALIPERIDONE 6 MG PO SCH (09:00)
[2018-05-27] MEDS: OMEGA-3 ACID ESTERS 1 GM CAPSULE PO SCH (09:00)
[2018-05-27] MEDS: CITALOPRAM 40 MG TABLET PO SCH (09:00)
[2018-05-27] MEDS: LISINOPRIL 10 MG TABLET PO SCH (09:00)
[2018-05-27] MEDS ORDERED: PALBOCICLIB 125 MG PO SCH (09:00)
[2018-05-27] MEDS: ENOXAPARIN 40 MG/0.4 ML INJECTION SQ SCH (09:01)
[2018-05-27] MEDS: CYANOCOBALAMIN (B-12) 500mcg TABLET PO SCH (09:01)
[2018-05-27] MEDS: CALCIUM CARBONATE 500 MG TABLET PO SCH (09:01)
[2018-05-27] MEDS: OLANZapine 10 MG TABLET PO SCH (10:27)
[2018-05-27] MEDS: POLYETHYL GLYCOL 3350 17gm PACKET PO SCH (10:27)
[2018-05-27] MEDS: IBRANCE 125 MG PO SCH ×3 (10:29→10:33)
[2018-05-27] MEDS: EXENATIDE SQ SCH (10:35)
--- NOTE | 2018-05-27 10:45 | IRU Progress Note ---
- Subjective/Serverity of Illness Date: 05/27/18 Ms. Wade was interviewed and examined in her room on inpatient rehabilitation. In addition I discussed her case with her this morning. She reports that she had a reasonably good night. Pain is minimal if she is simply lying still. There is some discomfort in the right hip as anticipated when she is up and about. She continues to have the wound VAC in place. We will ask wound care to help monitor and do with this. Her blood count indicates a hemoglobin of 10.2, white count 4300 and platelet count 107,000. Family is planning to contact Dr. Connor with oncology to clarify oral chemotherapy dosing. Her blood sugars are running a bit high at over 200. However she is getting started on a regimen here. Her A1c is 5.7%. She is cooperative with therapy. She does have quite a bit of reduced endurance and easy fatigability. Exam Vital Signs: Temperature 98.4 F 05/27/18 10:39 Pulse Rate 97 05/27/18 10:39 Respiratory Rate 16 05/27/18 10:39 Blood Pressure 171/72 H 05/27/18 10:39 Pulse Oximetry 90 05/27/18 10:39 Height/Weight/BMI: Height 1.57 m Weight 100.8 kg Body Mass Index 40.6 - Constitutional Present: no acute distress, well nourished, well developed, morbidly obese, somnolent (she initially awakened fine but then drifted back to sleep likely secondary to pain medication.) - Routine HEENT Exam Eye: Present: EOMI ENT: Present: mucous membranes moist, dentition normal - Routine Neck Exam Present: supple - Routine Respiratory Exam Present: CTA bilaterally. Absent: wheezes - Routine Cardiovascular Exam Present: RRR, S1, S2. Absent: murmur - Routine Abdominal Exam Present: soft, normoactive bowel sounds, non distended. Absent: tenderness - Routine Extremities Exam Present: edema (trace), normal capillary refill Comments: wound vac in place in right hip - Routine Skin Exam Present: dry, warm - Routine Neurological Exam Present: alert, oriented X3, CN II-XII intact - Routine Psychiatric Exam Present: normal affect Results IRU - Labs Labs: Patient's lab is reviewed along with therapy notes and other chart dated. IRU A/P (1) Other specified fracture of right acetabulum, initial encounter for closed fracture Current visit: Yes Status: Acute Patient reports adequate pain management at the present time. She is just getting started with therapy. We will monitor this carefully. (2) Anemia in chronic illness Current visit: Yes Status: Chronic Continues to have anemia with hemoglobin 10.2. This is likely multifactorial. Family is contacting Dr. Connor with regard to chemotherapy dosing and timing. (3) Benign essential hypertension Current visit: Yes Status: Chronic Patient's blood pressures running a bit high. (4) DM w/o complication type II, uncontrolled Qualifiers: Diabetes mellitus penitentiary insulin use: with penitentiary use Diabetes mellitus complication status: without complication Qualified Code(s): E11.65 - Type 2 diabetes mellitus with hyperglycemia; Z79.4 - [facility] (current) use of insulin Current visit: Yes Status: Chronic Her fingerstick blood sugars are running a bit high at the present time. She is just getting started on a routine regimen here however. Her 4 week average is excellent at 5.7%. We will monitor carefully and adjust as needed. (5) Metastatic breast carcinoma Current visit: Yes Status: Chronic Anticipating restarting oral antineoplastic medication after family talks with Dr. Connor. DVT Prophylaxis: SCD's, Lovenox Resuscitation Status: Full Code - Course Hospital Course: Nadeem Ring MD: 05/27/18 10:46 Patient seems a bit somnolent this morning. Family is checking on chemotherapy dosing and timing. Blood sugars are running a bit high. I will check with family as to why she is on Byetta only once inside of twice daily. Is getting started with therapy. - Interventions to Obtain Goals OT Treatment Plan: ADL (Basic Care), Balance Training, IADL, Pt./Family Education, Ther. Exercise for ADL Goals Progress/Modifications: Patient's blood sugars are running a bit high. She is using Byetta only once daily and I will clarify that with the family. In addition she is just not getting on a routine schedule with us. She is cooperative with therapy. She seems to be a bit somnolent this morning. We'll monitor carefully and may need to adjust medications if she continues to be sleepy. In addition, we'll ask wound care team to monitor and help with the wound VAC.
--- NOTE | 2018-05-27 10:50 | IRU Plan of Care ---
[facility] Overall Plan of Care - Date Date: 05/27/18 - Patient Impairments (1) Other specified fracture of right acetabulum, initial encounter for closed fracture Code(s): S32.491A - Other specified fracture of right acetabulum, initial encounter for closed fracture Status: Acute Classification: IRF Tx That Should Address Diagnosis, Diagnosis Requiring Medical Follow Up (2) Anemia in chronic illness Code(s): D63.8 - Anemia in other chronic diseases classified elsewhere Status : Chronic Classification: Present on IRF Admission, IRF Tx That Should Address Diagnosis, Diagnosis Requiring Medical Follow Up (3) Benign essential hypertension Code(s): I10 - Essential (primary) hypertension Status: Chronic Classification: Present on IRF Admission, IRF Tx That Should Address Diagnosis, Diagnosis Requiring Medical Follow Up (4) DM w/o complication type II, uncontrolled Qualifiers: Diabetes mellitus scallop cutter insulin use: with intermediate use Diabetes mellitus complication status: without complication Qualified Code(s): E11.65 - Type 2 diabetes mellitus with hyperglycemia; Z79.4 - clinical information systems director (current) use of insulin Code(s): E11.65 - Type 2 diabetes mellitus with hyperglycemia Status: Chronic Classification: Present on IRF Admission, IRF Tx That Should Address Diagnosis, Diagnosis Requiring Medical Follow Up (5) Metastatic breast carcinoma Code(s): C50.919 - Malignant neoplasm of unspecified site of unspecified female breast Status: Chronic Classification: Present on IRF Admission, IRF Tx That Should Address Diagnosis, Diagnosis Requiring Medical Follow Up - Relevant Changes Relevant Changes: No Reviewed: I have reviewed the patient's information and concur with the finding and results of the pre-admission screen. Certification: I certify the patient for rehabilitation. - Medical Prognosis Medical Prognosis: Good Vital Signs: Last Vital Signs Temp 98.4 F 05/27/18 10:39 Pulse 97 05/27/18 10:39 Resp 16 05/27/18 10:39 BP 171/72 H 05/27/18 10:39 Pulse Ox 90 05/27/18 10:39 - Anticipated Interventions Anticipated Interventions: The patient requires inpatient IRF care for PT, OT, and/or ST for residuals remaining from right acetabular fracture/right hip arthroplasty resulting in muscular weakness and strength deficits. An individualized overall plan of care has been developed after careful review of the patient's preadmission screening , post admission physician evaluation and assessments of all therapy disciplines and/or other pertinent clinicians involved in treating the patient. This indicates medical necessity and rehabilitation necessity have been established through a thorough review of all available medical information. ROM Deficit: Right Lower Extremity Strength Deficits: Right Lower Extremity - Current Functional Status Failed Alternative Therapy: Arrived from Acute Care Patient Requires: The patient requires oversight by rehabilitation physician to manage their rehabilitation treatment plan and multidisciplinary approach to care that can only be provided in an IRF and requires a multidisciplinary approach to care, provided by professional PTs, OTs, STs, rehabilitation nurses, and may require STs, dieticians, and RTS. This is not available in lesser levels of care. Physical Therapy Minutes: 90 Occupational Therapy Minutes: 90 Therapy: The patient is to receive therapy at least 5 days a week. - Anticipated LOS/Outcomes Anticipated Functional Outcome: It is anticipated the patient will be able to return to her home with modified independent level of functioning including ADLs and ambulation. Anticipated Length of Stay (days): 14 Anticipated DC Destination: Home, Self Care, Home Health Service Home Safety Plan: The patient will be provided with the development of a Home Safety Plan for return to a home or home-like environment and and to ensure safety post discharge. - Plan to Avoid Complications Barriers to Attaining Goals: Weakness, Balance, Endurance, Pain Control Plan to Avoid Complications: The patient cannot receive this care in a lesser intensive setting such as Shelter or Outpatient Therapy due to the patient requiring the following : This patient requires close monitoring of her blood sugars as well as blood pressure. She requires 24 rehabilitation nursing to provide additional activity between therapy sessions and to reduce fall risk. She requires a multidisciplinary approach with physical therapy and occupational therapy with medical supervision in view of her diabetes, hypertension, wound VAC and recent surgery particularly with regard to recent pancytopenia.
--- NOTE | 2018-05-27 13:13 | Consult Note ---
Consult Information - Data of Consult Consult date: 05/27/18 Requesting Physician: Nadeem Ring MD Primary Care Provider: Iftikhar Borrego APRN - Consult Narrative Reason for consult: DM, HTN, metastatic breast cancer History of present illness: Teagan is a pleasant 67 old female who currently resides in [place], [place] with her has been under the primary care of Haylie Olivares. History of breast cancer 2 years ago. Unfortunately, she was found to have metastatic cancer of the bone in January 2018. She was recently found to have an pathologic Right acetabular fracture and was admitted to [place] on 05/18/18. She was found to be pancytopenic and received G-CSF until blood counts stabilized. She then underwent right acetabulum and total hip arthroplasty on 05/24/[address] Estrada. Operatively she did have acute metabolic encephalopathy and postoperative delirium. She did have postoperative anemia and required 2 units of packed red blood cells on 05/25/18. Medically stable. Patient was screened and accepted to inpatient rehabilitation unit at [facility] for ongoing strengthening and postoperative function improvement. It is her goal that she can return to home with her . She is seen today for initial medical consultation, her existing comorbidities include type II diabetes, hypertension, metastatic breast cancer. She reports having moderate postoperative pain currently in the right hip. She also reports this morning she has nasal congestion and feels that she is getting a "cold". Past Medical History Medical History Updates: Type 2 diabetes. Hypertension. Obstructive sleep apnea. Schizophrenia. Metastatic breast cancer-right pelvis and acetabulum Surgical History: 1. Left mastectomy for cancer. 2. D and C. 3. Prior tubal ligation. 4. Hysterectomy. 5. Right total hip replacement with saucerization of acetabulum Family History: Other at age 66 from heart disease and kidney disease. 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[employer]) Current residence: Apartment/Private Home Social history: Resides [place], [place] with her Primary care provider-Iftikhar Borrego APRN Review of Systems All systems PM: 10-point ROS was reviewed, no additional remarkable complaints except - EENMT Nose: Present: other (nasal congestion) - Musculoskeletal Musculoskeletal: Present: other (Right hip) Medications Home Medications Medication Instructions Recorded Confirmed Type Albuterol HFA Inhaler [Ventolin 2 puff ORAL INH Q4HR PRN 05/26/18 05/26/18 History Hfa 90 mcg/actuation] Amlodipine [Norvasc] 5 mg PO DAILY 05/26/18 05/26/18 History Anastrozole 1 mg PO DAILY 05/26/18 05/26/18 History Aspirin [ASA] 1 tab PO BID 05/26/18 05/26/18 History Calcium Carbonate [Calcium] 500 mg PO DAILY 05/26/18 05/26/18 History Citalopram [Celexa] 40 mg PO DAILY 05/26/18 05/26/18 History Cyanocobalamin (Vitamin B-12) 1 tab PO DAILY 05/26/18 05/26/18 History [Vitamin B-12] Dicyclomine [Bentyl] 20 mg PO DAILY 05/26/18 05/26/18 History Docusate Sodium [Colace] 1 cap PO BID 05/26/18 05/26/18 History Enoxaparin [Lovenox] 40 mg SQ DAILY 05/26/18 05/26/18 History Ergocalciferol (Vit. D2) [Vitamin 1 cap PO 1 WEEK 05/26/18 05/26/18 History D-2] Exenatide [Byetta] 10 mcg SQ DAILY 05/26/18 05/26/18 History Ferrous Sulfate 325 mg PO BID 05/26/18 05/26/18 History GlyBURIDE [Micronase] 2.5 mg PO DAILY 05/26/18 05/26/18 History Insulin Aspart [NovoLOG] 30 unit SQ AC 05/26/18 05/26/18 History Insulin Glargine,Hum.rec.anlog 30 unit SQ DAILY 05/26/18 05/26/18 History [Basaglar Kwikpen U-100] Lisinopril [Prinivil] 10 mg PO DAILY 05/26/18 05/26/18 History OLANZapine [Olanzapine] 0.5 tab PO DAILY 05/26/18 05/26/18 History Vancleave-3/Dha/Epa/Fish Oil [Fish Oil 1 cap PO DAILY 05/26/18 05/26/[address] 500 mg Softgel] Palbociclib [Ibrance] 125 mg PO DAILY 05/26/18 05/26/18 History Paliperidone [Paliperidone ER] 6 mg PO DAILY 05/26/18 05/26/18 History Sennosides/Docusate Sodium 1 each PO DAILY PRN 05/26/18 05/26/18 History [Docusate Sodium-Sennosides Tab] Tramadol [Ultram] 50 mg PO Q6HR PRN 05/26/18 05/26/18 History Allergies Allergy/AdvReac Type Severity Reaction Status Date / Time metformin Allergy Verified 05/26/18 18:19 Exam Vital Signs: Temperature 98.4 F 05/27/18 10:39 Pulse Rate 97 05/27/18 10:39 Respiratory Rate 16 05/27/18 10:39 Blood Pressure 171/72 H 05/27/18 10:39 Pulse Oximetry 90 05/27/18 10:39 Height/Weight/BMI: Height 1.57 m Weight 100.8 kg Body Mass Index 40.6 - Constitutional Present: no acute distress, well nourished, well developed - Routine HEENT Exam Eye: Present: EOMI ENT: Present: mucous membranes moist, dentition normal - Routine Respiratory Exam Present: CTA bilaterally. Absent: wheezes - Routine Cardiovascular Exam Present: RRR, S1, S2. Absent: murmur - Routine Abdominal Exam Present: soft, normoactive bowel sounds, non distended. Absent: tenderness - Routine Extremities Exam Present: no edema - Routine Back/Spine/Pelvis Exam Back/Spine: Present: full ROM - Routine Skin Exam Present: intact, dry, warm - Routine Neurological Exam Present: alert, oriented X3, CN II-XII intact - Routine Psychiatric Exam Present: normal affect, normal thought process, cooperative Results - Labs CBC & Chem 7: 05/27/18 05:06 05/27/18 05:06 Assessment and Plan (1) Pathologic fracture of acetabulum Current visit: Yes Status: Acute (2) S/P total hip arthroplasty Current visit: Yes Status: Acute Assessment and Plan: Impression S/P right total hip arthroplasty due to pathologic right acetabulum fracture. Rhinorrhea Pancytopenia Type II diabetes Metastatic breast cancer Hypertension Schizophrenia Sleep apnea. Urinary urgency Plan Agree with admission to IRU under the care of Dr Ring Will monitor labs occasionally as she has known pancytopenia Monitor Accu-Cheks, continue on NovoLog 30 units with meals, and Levemir 30 at at bedtime. Monitor blood pressure, continue on lisinopril May need to consider are alternative postoperative anticoagulation given thrombocytopenia. PLT count today 107. Will continue to monitor MS Contin or Ultram as needed for pain Encourage work with PT and OT for ongoing strengthening Hospitalist services will continue to follow patient and medically manage existing comorbidities. At time of discharge medical care will return [place] DVT Prophylaxis: SCD's, Lovenox Resuscitation Status: Full Code - Physician Narrative Physician: Nela Rosa MD Narrative: Date: 05/27/18 Time: 1999 I have independently evaluated and examined this patient. I reviewed the chart, the patient's history, and the BRUSH FILLER HAND/PA's documented findings as above. We discussed and formulated the assessment and plan as above with additions as below: Mrs. Wade was seen late this afternoon with her daughter bedside. She transferred from [facility] after surgical repair of nontraumatic pathologic fracture of the right acetabulum. Her only concern this afternoon was of urinary urgency and incontinence without dysuria or hematuria. Neither she or her daughter believe she had a Fang catheter while she was hospitalized at [facility]. Incidentally noted to cough frequently and daughter reports the patient got a cold yesterday before discharge. NAD, alert Respirations nonlabored, good airflow with expiratory wheezing present bilateral lung tatum; upper airway predominance. Abdomen soft, nontender Urinalysis obtained following my visit-unremarkable. Treat with Pyridium empirically for symptoms and reassess. A1c 5.7; tendency for low blood sugars this afternoon. NovoLog doses decreased earlier today. Daughter reports history of mild asthma-breathing treatments and chest x-ray ordered. Hospital Course Summary Disclaimer: The visit summary below is not to be considered part of the above Progress Note. Hospital Course: Impression S/P right total hip arthroplasty due to pathologic right acetabulum fracture. Rhinorrhea Pancytopenia Type II diabetes Metastatic breast cancer Hypertension Schizophrenia Sleep apnea. Plan Agree with admission to IRU under the care of Dr Ring Will monitor labs occasionally as she has known pancytopenia Monitor Accu-Cheks, continue on NovoLog 30 units with meals, and Levemir 30 at at bedtime. Monitor blood pressure, continue on lisinopril May need to consider are alternative postoperative anticoagulation given thrombocytopenia. PLT count today 107. Will continue to monitor MS Contin or Ultram as needed for pain Encourage work with PT and OT for ongoing strengthening Hospitalist services will continue to follow patient and medically manage existing comorbidities. At time of discharge medical care will return to PCP in [place]-APRN
[2018-05-27] MEDS: GUAIFENESIN 400MG TABLET PO PRN (16:26)
--- NOTE | 2018-05-27 16:33 | Wound Care Progress Note ---
Wound Center Progress Note: Pt seen for wound consultation r/t Prevena wound vac to R hip. Pt resting in bed , no complaints of pain. Seen with Patricia CARREON. Pt was admitted to [facility] for surgical repair of a pathologic FX to R hip; surgery date 05/24/18. Operating surgeon placed Prevena Incision Management Vac to R hip incision. At this time the vac is in place, purple foam collapsed without leaks, running at 125 mm Hg continuous pressure, canister has no drainage. Prevena vac will stay in place for approximately 7 days after date of placement. Prevena wound vacs are intended for placement from 2-7 days, after this time the battery will no longer work. The battery, if changed after the 7 day period, will not work to power the machine. Nursing staff has been instructed that when the battery ceases to function, the vac should be removed and discarded and to contact wound care/hospitalist if there are any concerns regarding surgical incision.
[2018-05-27] MEDS: INSULIN ASPART 100unit/ml INJECTION SQ SCH (17:27)
[2018-05-27] MEDS ORDERED: PHENAZOPYRIDINE 95 MG TABLET PO PRN (20:03)
[2018-05-27] MEDS ORDERED: ALBUTEROL/IPRATROPIUM 2.5mg-0.5mg/3ml NEB AEROSOL PRN (20:10)
[2018-05-27] MEDS: INSULIN DETEMIR 100unit/ml INJECTION SQ SCH (20:28)
[2018-05-27] MEDS: TRAMADOL 50 MG TABLET PO PRN (22:56)
[2018-05-28] MEDS: ENOXAPARIN 40 MG/0.4 ML INJECTION SQ SCH (08:58)
[2018-05-28] MEDS: MIRABEGRON 25mg TABLET PO SCH (08:58)
[2018-05-28] MEDS: OMEGA-3 ACID ESTERS 1 GM CAPSULE PO SCH (08:58)
[2018-05-28] MEDS: TRAMADOL 50 MG TABLET PO PRN ×3 (08:59→20:37)
[2018-05-28] MEDS: FERROUS SULFATE 324 MG TABLET PO SCH (08:59)
[2018-05-28] MEDS: OLANZapine 10 MG TABLET PO SCH (08:59)
[2018-05-28] MEDS: DOCUSATE SODIUM 100 MG CAPSULE PO SCH ×2 (08:59→20:35)
[2018-05-28] MEDS: DICYCLOMINE 20mg TABLET PO SCH (09:00)
[2018-05-28] MEDS: ANASTROZOLE 1 MG TABLET PO SCH (09:00)
[2018-05-28] MEDS: AMLODIPINE 5 MG TABLET PO SCH (09:00)
[2018-05-28] MEDS: CYANOCOBALAMIN (B-12) 500mcg TABLET PO SCH (09:00)
[2018-05-28] MEDS: CITALOPRAM 40 MG TABLET PO SCH (09:00)
[2018-05-28] MEDS: CALCIUM CARBONATE 500 MG TABLET PO SCH (09:00)
[2018-05-28] MEDS: LISINOPRIL 10 MG TABLET PO SCH (09:00)
[2018-05-28] MEDS: INSULIN ASPART 100unit/ml INJECTION SQ SCH ×3 (09:01→17:36)
[2018-05-28] MEDS: PALIPERIDONE 9 MG PO SCH (09:03)
[2018-05-28] MEDS: EXENATIDE SQ SCH (09:03)
[2018-05-28] MEDS: POLYETHYL GLYCOL 3350 17gm PACKET PO SCH (09:04)
[2018-05-28] MEDS: INSULIN DETEMIR 100unit/ml INJECTION SQ SCH (20:36)
[2018-05-29] MEDS: TRAMADOL 50 MG TABLET PO PRN ×4 (04:39→23:14)
[2018-05-29] MEDS ORDERED: ERGOCALCIFEROL 50,000 UNIT CAPSULE PO SCH (09:00)
[2018-05-29] MEDS: CYANOCOBALAMIN (B-12) 500mcg TABLET PO SCH (09:13)
[2018-05-29] MEDS: CALCIUM CARBONATE 500 MG TABLET PO SCH (09:13)
[2018-05-29] MEDS: DOCUSATE SODIUM 100 MG CAPSULE PO SCH ×2 (09:13→20:32)
[2018-05-29] MEDS: DICYCLOMINE 20mg TABLET PO SCH (09:13)
[2018-05-29] MEDS: LISINOPRIL 10 MG TABLET PO SCH (09:13)
[2018-05-29] MEDS: FERROUS SULFATE 324 MG TABLET PO SCH (09:13)
[2018-05-29] MEDS: OLANZapine 10 MG TABLET PO SCH (09:14)
[2018-05-29] MEDS: OMEGA-3 ACID ESTERS 1 GM CAPSULE PO SCH (09:14)
[2018-05-29] MEDS: AMLODIPINE 5 MG TABLET PO SCH (09:14)
[2018-05-29] MEDS: ANASTROZOLE 1 MG TABLET PO SCH (09:14)
[2018-05-29] MEDS: GUAIFENESIN 400MG TABLET PO PRN (09:15)
[2018-05-29] MEDS: MIRABEGRON 25mg TABLET PO SCH (09:15)
[2018-05-29] MEDS: POLYETHYL GLYCOL 3350 17gm PACKET PO SCH (09:16)
[2018-05-29] MEDS: PALIPERIDONE 9 MG PO SCH (09:16)
[2018-05-29] MEDS: ENOXAPARIN 40 MG/0.4 ML INJECTION SQ SCH (09:17)
[2018-05-29] MEDS: INSULIN ASPART 100unit/ml INJECTION SQ SCH ×3 (09:29→17:17)
[2018-05-29] MEDS: CITALOPRAM 40 MG TABLET PO SCH (09:41)
[2018-05-29] MEDS: EXENATIDE SQ SCH (09:41)
--- NOTE | 2018-05-29 13:39 | XRay Report ---
Indication: URI/wheezing, history asthma PROCEDURE: XR chest 1V: Encounter: Initial Comparison: None FINDINGS: Mild interstitial prominence without focal consolidation. No pleural effusion or pneumothorax identified. The heart size, pulmonary vasculature and mediastinum are within normal limits. No significant skeletal abnormality is seen. IMPRESSION: Mild interstitial prominence could represent atypical/viral pneumonia or reactive airway disease. .
[2018-05-29] MEDS: INSULIN DETEMIR 100unit/ml INJECTION SQ SCH (20:32)
[2018-05-30] MEDS: TRAMADOL 50 MG TABLET PO PRN ×3 (05:59→20:49)
[2018-05-30] MEDS: DOCUSATE SODIUM 100 MG CAPSULE PO SCH ×2 (08:05→20:49)
[2018-05-30] MEDS: AMLODIPINE 5 MG TABLET PO SCH (08:05)
[2018-05-30] MEDS: OLANZapine 10 MG TABLET PO SCH (08:06)
[2018-05-30] MEDS: FERROUS SULFATE 324 MG TABLET PO SCH (08:06)
[2018-05-30] MEDS: MIRABEGRON 25mg TABLET PO SCH (08:06)
[2018-05-30] MEDS: CITALOPRAM 40 MG TABLET PO SCH (08:07)
[2018-05-30] MEDS: PALIPERIDONE 9 MG PO SCH (08:07)
[2018-05-30] MEDS: ANASTROZOLE 1 MG TABLET PO SCH (08:07)
[2018-05-30] MEDS: LISINOPRIL 10 MG TABLET PO SCH (08:07)
[2018-05-30] MEDS: OMEGA-3 ACID ESTERS 1 GM CAPSULE PO SCH (08:07)
[2018-05-30] MEDS: DICYCLOMINE 20mg TABLET PO SCH (08:07)
[2018-05-30] MEDS: CALCIUM CARBONATE 500 MG TABLET PO SCH (08:08)
[2018-05-30] MEDS: CYANOCOBALAMIN (B-12) 500mcg TABLET PO SCH (08:08)
[2018-05-30] MEDS: POLYETHYL GLYCOL 3350 17gm PACKET PO SCH (08:08)
[2018-05-30] MEDS: GUAIFENESIN 400MG TABLET PO PRN (08:08)
[2018-05-30] MEDS: ENOXAPARIN 40 MG/0.4 ML INJECTION SQ SCH (08:09)
[2018-05-30] MEDS: INSULIN ASPART 100unit/ml INJECTION SQ SCH ×3 (08:22→17:24)
[2018-05-30] MEDS: EXENATIDE SQ SCH (08:31)
--- NOTE | 2018-05-30 15:05 | IRU Progress Note ---
- Subjective/Serverity of Illness Date: 05/30/18 Teagan initially stated that her pain is predominantly when she is up walking. However she later stated that she was not able to sleep at night because of pain. She is tolerating the pain medication adequately. Seems to be fairly comfortable while at rest we will not change nothing at present as I think this is within the normal range of pain that we would expect. She is on tramadol 50 mg at present. She complained of urinary frequency over the weekend. Urinalysis was obtained and was negative. We did start Myrebetriq. Patient has history of metastatic breast cancer and is status post pathologic fracture of the right hip. She denies any chest pain or shortness of breath. Appetite seems to be good and she is having bowel movements. She does have trace of edema on the right side as anticipated. The wound VAC continues to function normally. She is requiring moderate assistance for transfers. She is able to ambulate 300 feet with contact guard assistance with a front-wheeled walker and sometimes 4 wheeled walker. She is able to groom with standby assistance, perform upper body dressing with standby assistance and lower body dressing with moderate assistance. Bathing is with minimum assistance. She is making functional gains. Her blood pressures are running a bit on the high side at 150-160 or so. Blood sugars are variable, between 120 and 200. Exam Vital Signs: Temperature 98.5 F 05/30/18 14:47 Pulse Rate 102 H 05/30/18 14:47 Respiratory Rate 16 05/30/18 14:47 Blood Pressure 160/75 H 05/30/18 14:47 Pulse Oximetry 93 05/30/18 14:47 Height/Weight/BMI: Height 1.57 m Weight 100.8 kg Body Mass Index 40.6 - Constitutional Present: no acute distress, well nourished, well developed, cooperative - Routine HEENT Exam Eye: Present: EOMI ENT: Present: mucous membranes moist, dentition normal - Routine Respiratory Exam Present: CTA bilaterally. Absent: wheezes - Routine Cardiovascular Exam Present: RRR, S1, S2, murmur - Routine Abdominal Exam Present: soft, normoactive bowel sounds, non distended. Absent: tenderness - Routine Extremities Exam Present: edema (trace to 1+ edema right lower extremity.), normal capillary refill - Routine Skin Exam Present: dry, warm - Routine Neurological Exam Present: alert, oriented X3, CN II-XII intact - Routine Psychiatric Exam Present: normal affect Results IRU - Labs Labs: Patient's chart data is reviewed. IRU A/P (1) Other specified fracture of right acetabulum, initial encounter for closed fracture Current visit: Yes Status: Acute Is reporting pain with ambulation as anticipated. She is making functional gains with regard to ADLs as well as her ambulation and transfers. (2) Anemia in chronic illness Current visit: Yes Status: Chronic Hemoglobin 10 g percent. No evidence of ongoing bleeding. (3) Benign essential hypertension Current visit: Yes Status: Chronic Blood pressures are reviewed and are running between 150-160 systolic. (4) DM w/o complication type II, uncontrolled Qualifiers: Diabetes mellitus residential insulin use: with residential use Diabetes mellitus complication status: without complication Qualified Code(s): E11.65 - Type 2 diabetes mellitus with hyperglycemia; Z79.4 - terminal gauger (current) use of insulin Current visit: Yes Status: Chronic Blood sugars are reviewed. We did reduce her insulin because of some hypoglycemia over the weekend. (5) Metastatic breast carcinoma Current visit: Yes Status: Chronic DVT Prophylaxis: SCD's, Lovenox Resuscitation Status: Full Code - Course Hospital Course: Nadeem Ring MD: 05/27/18 10:46 Patient seems a bit somnolent this morning. Family is checking on chemotherapy dosing and timing. Blood sugars are running a bit high. I will check with family as to why she is on Byetta only once inside of twice daily. Is getting started with therapy. 05/30/18 15:08 Blood sugars are variable. Insulin reduced due to hypoglycemia. Blood pressures slightly high. Pain in right hip as anticipated. Wound VAC functioning normally. Started Myrebetriq for urinary frequency with negative UA. 05/30/18 15:08 - Interventions to Obtain Goals PT Treatment Plan: Balance/Proprioception, Functional Activities, Gait Training , Patient/Family Education, Therapeutic Exercise OT Treatment Plan: ADL (Basic Care), Balance Training, IADL, Pt./Family Education, Ther. Exercise for ADL Goals Progress/Modifications: Teagan is tolerating therapy well. She is making functional gains. She complained of urinary frequency and a urinalysis was done which was negative for infection. Myrebetriq was started and she is tolerating it well. Does complain of pain with ambulation as anticipated. Denies shortness of breath or chest pain. Her blood sugars are running a bit high as are her blood pressures. She was hypoglycemic recently and therefore we decreased the insulin doses. We' ll continue to monitor and work with the hospitalists in this regard.
[2018-05-30] MEDS: INSULIN DETEMIR 100unit/ml INJECTION SQ SCH (20:50)
[2018-05-31] MEDS: TRAMADOL 50 MG TABLET PO PRN ×2 (06:10→12:10)
[2018-05-31] MEDS: FERROUS SULFATE 324 MG TABLET PO SCH (08:25)
[2018-05-31] MEDS: AMLODIPINE 5 MG TABLET PO SCH (08:25)
[2018-05-31] MEDS: CITALOPRAM 40 MG TABLET PO SCH (08:26)
[2018-05-31] MEDS: LISINOPRIL 10 MG TABLET PO SCH (08:27)
[2018-05-31] MEDS: DICYCLOMINE 20mg TABLET PO SCH (08:27)
[2018-05-31] MEDS: CYANOCOBALAMIN (B-12) 500mcg TABLET PO SCH (08:27)
[2018-05-31] MEDS: MIRABEGRON 25mg TABLET PO SCH (08:27)
[2018-05-31] MEDS: ENOXAPARIN 40 MG/0.4 ML INJECTION SQ SCH (08:28)
[2018-05-31] MEDS: ANASTROZOLE 1 MG TABLET PO SCH (08:28)
[2018-05-31] MEDS: POLYETHYL GLYCOL 3350 17gm PACKET PO SCH (08:33)
[2018-05-31] MEDS: OLANZapine 10 MG TABLET PO SCH (08:34)
[2018-05-31] MEDS: EXENATIDE SQ SCH (08:39)
[2018-05-31] MEDS: PALIPERIDONE 9 MG PO SCH (08:41)
[2018-05-31] MEDS: DOCUSATE SODIUM 100 MG CAPSULE PO SCH ×2 (08:46→20:23)
[2018-05-31] MEDS: INSULIN ASPART 100unit/ml INJECTION SQ SCH ×3 (08:46→17:17)
[2018-05-31] MEDS: OMEGA-3 ACID ESTERS 1 GM CAPSULE PO SCH (09:57)
[2018-05-31] MEDS: CALCIUM CARBONATE 500 MG TABLET PO SCH (09:57)
--- NOTE | 2018-05-31 11:48 | IRU Progress Note ---
- Subjective/Serverity of Illness Date: 05/31/18 Teagan reports to me that her pain is more well managed at the present time. Primarily has pain when she is up and ambulating. She is making progress with therapy. Wound VAC remains in place with management per wound team. Her blood pressures are reviewed and are improved typically in the 140 range. Her blood sugars are also reviewed and are typically 150 or less. Exam Vital Signs: Temperature 98.1 F 05/31/18 08:00 Pulse Rate 99 05/31/18 08:00 Respiratory Rate 16 05/31/18 08:00 Blood Pressure 149/63 H 05/31/18 08:00 Pulse Oximetry 94 05/31/18 08:00 Height/Weight/BMI: Height 1.57 m Weight 100.8 kg Body Mass Index 40.6 - Constitutional Present: no acute distress, well nourished, well developed, morbidly obese, cooperative - Routine HEENT Exam Eye: Present: EOMI ENT: Present: mucous membranes moist, dentition normal - Routine Respiratory Exam Present: CTA bilaterally. Absent: wheezes - Routine Cardiovascular Exam Present: RRR, S1, S2. Absent: murmur - Routine Abdominal Exam Present: soft, normoactive bowel sounds, non distended. Absent: tenderness - Routine Extremities Exam Present: edema (right lower extremity as anticipated), normal capillary refill - Routine Skin Exam Present: dry, warm - Routine Neurological Exam Present: alert, oriented X3, CN II-XII intact - Routine Psychiatric Exam Present: normal affect, cooperative IRU A/P (1) Other specified fracture of right acetabulum, initial encounter for closed fracture Current visit: Yes Status: Acute Continues to tolerate therapy well with adequate pain management. Progressing with therapy. Team meeting today for further input regarding progress and anticipated length of stay. (2) Anemia in chronic illness Current visit: Yes Status: Chronic (3) Benign essential hypertension Current visit: Yes Status: Chronic Her blood pressures are improved at 140 systolic. (4) DM w/o complication type II, uncontrolled Qualifiers: Diabetes mellitus tile edger insulin use: with tile edger use Diabetes mellitus complication status: without complication Qualified Code(s): E11.65 - Type 2 diabetes mellitus with hyperglycemia; Z79.4 - care home (current) use of insulin Current visit: Yes Status: Chronic Most recent blood sugar 152. (5) Metastatic breast carcinoma Current visit: Yes Status: Chronic DVT Prophylaxis: SCD's, Lovenox Resuscitation Status: Full Code - Course Hospital Course: Nadeem Ring MD: 05/27/18 10:46 Patient seems a bit somnolent this morning. Family is checking on chemotherapy dosing and timing. Blood sugars are running a bit high. I will check with family as to why she is on Byetta only once inside of twice daily. Is getting started with therapy. 05/30/18 15:08 Blood sugars are variable. Insulin reduced due to hypoglycemia. Blood pressures slightly high. Pain in right hip as anticipated. Wound VAC functioning normally. Started Myrebetriq for urinary frequency with negative UA. 05/30/18 15:08 05/31/18 11:48 Progressing with therapy. Blood pressures are improved as are blood sugars. Wound VAC functioning normally. - Interventions to Obtain Goals PT Treatment Plan: Balance/Proprioception, Functional Activities, Gait Training , Patient/Family Education, Therapeutic Exercise OT Treatment Plan: ADL (Basic Care), Balance Training, IADL, Pt./Family Education, Ther. Exercise for ADL
--- NOTE | 2018-05-31 14:11 | IRU Team Meeting ---
IRU Team Meeting - Nursing Bladder Assistive Devices Utilized:: Absorbent Pad Bladder Management Level of Assist: Total Assistance Bladder Frequency of Accidents: No accidents Bowel Assistive Devices Utilized:: Medication, Absorbent Pad Bowel Management Level of Assist: Modified Independent Bowel Frequency of Accidents: No accidents Vital Signs: Vital Signs - 24 hr 05/30/18 14:47 05/30/18 16:10 05/31/18 00:00 Temperature 98.5 F 98.1 F 98.4 F Pulse Rate 102 H 90 94 Respiratory Rate 16 16 20 Blood Pressure 160/75 H 148/67 H 141/64 H Pulse Oximetry 93 95 96 05/31/18 08:00 Temperature 98.1 F Pulse Rate 99 Respiratory Rate 16 Blood Pressure 149/63 H Pulse Oximetry 94 Current Medications: Acetaminophen (Tylenol Arthritis 650 Mg Sr) 650 mg PO Q8HR [facility] Last Admin: 05/31/18 08:26 Dose: 650 mg Albuterol Sulfate (Proventil Neb (0.083%)) 2.5 mg AEROSOL Q4H PRN PRN Reason: Shortness of air/wheezing Albuterol/Ipratropium (Duoneb) 3 ml AEROSOL QID PRN PRN Reason: Shortness of air/wheezing Amlodipine Besylate (Norvasc) 5 mg PO DAILY [facility] Last Admin: 05/31/18 08:25 Dose: 5 mg Anastrozole (Arimidex) 1 mg PO DAILY [facility] Last Admin: 05/31/18 08:28 Dose: 1 mg Calcium Carbonate (Calcium Carbonate) 500 mg PO DAILY [facility] Last Admin: 05/31/18 09:57 Dose: 500 mg Citalopram Hydrobromide (Celexa) 40 mg PO DAILY [facility] Last Admin: 05/31/18 08:26 Dose: 40 mg Cyanocobalamin (Vit. B-12) 500 mcg PO DAILY [facility] Last Admin: 05/31/18 08:27 Dose: 500 mcg Dicyclomine HCl (Bentyl) 20 mg PO DAILY [facility] Last Admin: 05/31/18 08:27 Dose: 20 mg Docusate Sodium (Colace) 100 mg PO BID [facility] Last Admin: 05/31/18 08:46 Dose: 100 mg Enoxaparin Sodium (Lovenox) 40 mg SQ DAILY [facility] Last Admin: 05/31/18 08:28 Dose: 40 mg Ergocalciferol (Vitamin D-2) 50,000 unit PO Singer@0900 [facility] Last Admin: 05/29/18 09:41 Dose: 50,000 unit Exenatide (Byetta) 10 mcg SQ DAILY [facility] Last Admin: 05/31/18 08:39 Dose: 10 mcg Ferrous Sulfate (Feosol) 324 mg PO WB [facility] Last Admin: 05/31/18 08:25 Dose: 324 mg Guaifenesin (Mucinex) 400 mg PO TID PRN PRN Reason: Congestion Last Admin: 05/30/18 08:08 Dose: 400 mg Insulin Aspart (Novolog) 25 unit SQ WB [facility] Last Admin: 05/31/18 08:46 Dose: 25 unit Insulin Aspart (Novolog) 25 unit SQ WL [facility] Last Admin: 05/31/18 12:41 Dose: 25 unit Insulin Aspart (Novolog) 25 unit SQ WS [facility] Last Admin: 05/30/18 17:24 Dose: 25 unit Insulin Detemir (Levemir) 30 unit SQ HS [facility] Last Admin: 05/30/18 20:50 Dose: 30 unit Lisinopril (Prinivil) 10 mg PO DAILY [facility] Last Admin: 05/31/18 08:27 Dose: 10 mg Magnesium Hydroxide (Mom) 30 ml PO DAILY PRN PRN Reason: Constipation Mirabegron (Myrbetriq) 25 mg PO DAILY [facility] Last Admin: 05/31/18 08:27 Dose: 25 mg -Pom-Ibrance 125 Mg 125 mg PO DAILY [facility] Stop: 06/27/18 09:01 Nystatin (Mycostatin) 1 applic TP TID [facility] Last Admin: 05/31/18 08:47 Dose: 1 applic Olanzapine (Zyprexa) 10 mg PO DAILY [facility] Last Admin: 05/31/18 08:34 Dose: 10 mg Whcap-2-Acab Ethyl Esters (Lovaza) 1 gm PO DAILY [facility] Last Admin: 05/31/18 09:57 Dose: 1 gm Paliperidone (Invega) 0 mg PO DAILY [facility] Last Admin: 05/31/18 08:41 Dose: 1.5 mg Phenazopyridine HCl (Pyridium Eq) 95 mg PO PC PRN PRN Reason: Urinary pain Polyethylene Glycol (Miralax) 17 gm PO DAILY [facility] Last Admin: 05/31/18 08:33 Dose: 17 gm Current Medical Issues: Status post right acetabular fracture repair, diabetes mellitus type 2 on vat operator insulin, urinary frequency with incontinence, history of pancytopenia, presence of wound VAC Comments: I certify that I personally led the interdisciplinary team meeting and agree with comments, barriers and goals indicated. Team meeting was held in the patient's room with the patient and the following family members present: present in person, Shaunna (daughter) present by speakerphone Ms. Wade is tolerating the wound VAC well. Her pain seems to be worse at the present time. We will change from tramadol to hydrocodone. She has had urinary incontinence with negative UA. Myrebetriq has been started. Pancytopenia is currently not present with white count 4300. Blood sugars 150-200. - Physical Therapy Bed, Chair, Wheelchair Transfer Assist: Minimal Assistance Ambulation Ability: Maximal Assistance Ambulation Distance: 124 Wheelchair Propulsion Ability: Total Assistance Wheelchair Propulsion Distance: 10 Stair Climbing Ability: Patient Unsafe/Unable Car Transfer Ability: Maximal Assistance Comments: Patient is doing well with functional mobility with a 4 wheeled walker. She is demonstrating good safety awareness throughout with requirement for just one verbal cue for proper application of brace when sitting down. She is cooperative. - Occupational Therapy Eating Ability: Independent Grooming Ability: Stand By Assist/Supervision Bathing Ability: Contact Guard Assistance Upper Body Dressing Ability: Stand By Assist/Supervision Lower Body Dressing Ability: Moderate Assistance Tub Transfer Assist: Contact Guard Assistance Toileting Assist: Minimal Assistance Toilet Transfer Assist: Contact Guard Assistance Comments: She is using assistive devices. She is improving with regard to ADLs but requires cues to initiate tasks at times. Continue working on bilateral upper extremity strengthening and core strength and core stability to improve safety and activity tolerance. - Goals Physical Therapy Goals: 05/31/18: 1.) Demonstrate bed mobility with modified independence. 2.) Demonstrate 150 feet with four-wheeled walker with proper use of brakes. 3.) Demonstrate ramp with four-wheeled walker with supervision. Occupational Therapy Goals: OT goals 05/31/18: 1.) Lower body dressing with modified independence. 2.) Toileting with modified independence. 3.) Light meal preparation with modified independence. - Barriers to Discharge Barriers to Attaining Goals: Pain Control (to address pain control, we will stop tramadol and start hydrocodone.) - Care Plan Anticipated Length of Stay (days): 3 Anticipated DC Destination: Home, Self Care, Home Health Service I have led this team conference and agree with the plan. Interventions/Goals: Patient is progressing well with therapy. Good interaction with and daughter and questions addressed. Anticipate home Wednesday on June 03 with home health.
[2018-05-31] MEDS: HYDROCODONE/APAP 5mg/325mg TABLET PO PRN ×2 (14:36→20:23)
--- NOTE | 2018-05-31 16:58 | Wound Care Progress Note ---
Wound Center Progress Note: Pt seen for wound follow up. Seen with Keshia CARREON. Pt sitting in chair, at bedside. R hip incisional Prevena wound vac: purple foam collapsed without leaks , canister has no drainage. Battery on Prevena still working; battery should cease to function this week according to manufactures directions. Vac will start alarming when battery charge is low, at this time remove and discard vac. Consult with with any concerns r/t surgical incision.
--- NOTE | 2018-05-31 17:02 | Progress Note ---
- Date 05/31/18 Subjective: Teagan reports pain control has improved significantly with Mcguffey started earlier today. She is bearing weight and walking to the dining room and beyond and hopes to go home at the end of the week. She denies nausea or dyspnea. She' s had no further dysuria but reports occasional urinary urgency with incontinence. She is unsure that medication recently started for her bladder is helping. Objective Vital signs: Temperature 97.8 F 05/31/18 15:40 Pulse Rate 94 05/31/18 15:40 Respiratory Rate 18 05/31/18 15:40 Blood Pressure 149/66 H 05/31/18 15:40 Pulse Oximetry 96 - RA 05/31/18 15:40 NAD, alert, fluent speech Respirations nonlabored, good airflow, breath sounds clear anteriorly Regular rhythm, S1-S2 Abdomen soft, nontender, no suprapubic tenderness Height/Weight/BMI: Height 1.57 m Weight 100.8 kg Body Mass Index 40.6 Results - Labs CBC & Chem 7: 05/27/18 05:06 05/27/18 05:06 Assessment and Plan (1) Pathologic fracture of acetabulum Current visit: Yes Status: Acute (2) S/P total hip arthroplasty Current visit: Yes Status: Acute Assessment and Plan: Impression S/P right total hip arthroplasty due to pathologic right acetabulum fracture. Rhinorrhea Pancytopenia Type II diabetes Metastatic breast cancer Hypertension Schizophrenia Sleep apnea. Urinary urgency Macrocytic anemia Chronic renal failure, stage II Plan Making good progress; blood pressure consistently borderline high. Increase lisinopril to 20 mg every morning with continued amlodipine use. Blood sugars reviewed, typically running 150-200 with occasional blood sugars in excess of 200. Tends to be highest after breakfast, a.m. dose NovoLog increased 2 units. Reassess renal function in conjunction with adjustment in lisinopril dose. Recheck hemoglobin in a.m. Mirabegron initiated for overactive bladder after UA negative for infection. Continue to monitor symptoms. DVT Prophylaxis: SCD's, Lovenox Resuscitation Status: Full Code - Physician Narrative Narrative: Date: 05/31/18 Time: 165 Hospital Course Summary Disclaimer: The visit summary below is not to be considered part of the above Progress Note. Hospital Course: Impression S/P right total hip arthroplasty due to pathologic right acetabulum fracture. Rhinorrhea Pancytopenia Type II diabetes Metastatic breast cancer Hypertension Schizophrenia Sleep apnea. Plan 05/27/18 Agree with admission to IRU under the care of Dr Ring Will monitor labs occasionally as she has known pancytopenia Monitor Accu-Cheks, continue on NovoLog 30 units with meals, and Levemir 30 at at bedtime. Monitor blood pressure, continue on lisinopril May need to consider are alternative postoperative anticoagulation given thrombocytopenia. PLT count today 107. Will continue to monitor MS Contin or Ultram as needed for pain Encourage work with PT and OT for ongoing strengthening Hospitalist services will continue to follow patient and medically manage existing comorbidities. At time of discharge medical care will return to PCP in [place] Jaynette Miller-APRN 05/31/18 Making good progress; blood pressure consistently borderline high. Increase lisinopril to 20 mg every morning with continued amlodipine use. Blood sugars reviewed, typically running 150-200 with occasional blood sugars in excess of 200. Tends to be highest after breakfast, a.m. dose NovoLog increased 2 units. Reassess renal function in conjunction with adjustment in lisinopril dose. Recheck hemoglobin in a.m. Mirabegron initiated for overactive bladder after UA negative for infection. Continue to monitor symptoms.
[2018-05-31] MEDS: INSULIN DETEMIR 100unit/ml INJECTION SQ SCH (20:24)
[2018-06-01] MEDS: INSULIN ASPART 100unit/ml INJECTION SQ SCH ×3 (08:26→17:03)
[2018-06-01] MEDS: AMLODIPINE 5 MG TABLET PO SCH (08:27)
[2018-06-01] MEDS: CYANOCOBALAMIN (B-12) 500mcg TABLET PO SCH (08:27)
[2018-06-01] MEDS: ANASTROZOLE 1 MG TABLET PO SCH (08:28)
[2018-06-01] MEDS: GUAIFENESIN 400MG TABLET PO PRN (08:28)
[2018-06-01] MEDS: OMEGA-3 ACID ESTERS 1 GM CAPSULE PO SCH (08:28)
[2018-06-01] MEDS: DOCUSATE SODIUM 100 MG CAPSULE PO SCH ×2 (08:29→22:02)
[2018-06-01] MEDS: FERROUS SULFATE 324 MG TABLET PO SCH (08:29)
[2018-06-01] MEDS: MIRABEGRON 25mg TABLET PO SCH (08:29)
[2018-06-01] MEDS: DICYCLOMINE 20mg TABLET PO SCH (08:30)
[2018-06-01] MEDS: CALCIUM CARBONATE 500 MG TABLET PO SCH (08:30)
[2018-06-01] MEDS: ENOXAPARIN 40 MG/0.4 ML INJECTION SQ SCH (08:30)
[2018-06-01] MEDS: HYDROCODONE/APAP 5mg/325mg TABLET PO PRN ×3 (08:38→22:52)
[2018-06-01] MEDS: LISINOPRIL 10 MG TABLET PO SCH (08:41)
[2018-06-01] MEDS: EXENATIDE SQ SCH (09:28)
[2018-06-01] MEDS: POLYETHYL GLYCOL 3350 17gm PACKET PO SCH (09:28)
[2018-06-01] MEDS: OLANZapine 10 MG TABLET PO SCH (09:29)
[2018-06-01] MEDS: PALIPERIDONE 9 MG PO SCH (09:33)
[2018-06-01] MEDS: CITALOPRAM 40 MG TABLET PO SCH (22:01)
[2018-06-01] MEDS: INSULIN DETEMIR 100unit/ml INJECTION SQ SCH (22:02)
[2018-06-02] MEDS: DICYCLOMINE 20mg TABLET PO SCH (06:36)
[2018-06-02] MEDS: HYDROCODONE/APAP 5mg/325mg TABLET PO PRN ×2 (06:36→18:37)
[2018-06-02] MEDS: MIRABEGRON 25mg TABLET PO SCH (08:30)
[2018-06-02] MEDS: CALCIUM CARBONATE 500 MG TABLET PO SCH (08:30)
[2018-06-02] MEDS: LISINOPRIL 10 MG TABLET PO SCH (08:30)
[2018-06-02] MEDS: AMLODIPINE 5 MG TABLET PO SCH (08:31)
[2018-06-02] MEDS: OLANZapine 10 MG TABLET PO SCH (08:31)
[2018-06-02] MEDS: DOCUSATE SODIUM 100 MG CAPSULE PO SCH ×2 (08:32→20:54)
[2018-06-02] MEDS: ANASTROZOLE 1 MG TABLET PO SCH (08:32)
[2018-06-02] MEDS: CYANOCOBALAMIN (B-12) 500mcg TABLET PO SCH (08:32)
[2018-06-02] MEDS: FERROUS SULFATE 324 MG TABLET PO SCH (08:32)
[2018-06-02] MEDS: INSULIN ASPART 100unit/ml INJECTION SQ SCH ×3 (08:32→17:36)
[2018-06-02] MEDS: ENOXAPARIN 40 MG/0.4 ML INJECTION SQ SCH (08:33)
[2018-06-02] MEDS: PALIPERIDONE 9 MG PO SCH (08:34)
[2018-06-02] MEDS: POLYETHYL GLYCOL 3350 17gm PACKET PO SCH (08:35)
[2018-06-02] MEDS: OMEGA-3 ACID ESTERS 1 GM CAPSULE PO SCH (09:31)
[2018-06-02] MEDS: EXENATIDE SQ SCH (09:32)
--- NOTE | 2018-06-02 11:56 | IRU Progress Note ---
- Subjective/Serverity of Illness Date: 06/02/18 Teagan tells me that her pain management is improved and she is stable in this regard. She did have 2 loose stools and for that reason is declining some of the bowel supplements. She has no edema at present. She is cooperative with therapy. She is transferring at modified independent level for physical therapy and at minimum assistance level for occupational therapy. Upper body dressing and bathing is with standby assistance while lower body dressing is with contact-guard assistance. She is able to ambulate 235 feet with a front-wheeled walker at modified independent level. Exam Vital Signs: Temperature 97.9 F 06/02/18 08:00 Pulse Rate 84 06/02/18 08:00 Respiratory Rate 14 06/02/18 08:00 Blood Pressure 107/50 06/02/18 08:00 Pulse Oximetry 94 06/02/18 08:00 Height/Weight/BMI: Height 1.57 m Weight 100.8 kg Body Mass Index 40.6 - Constitutional Present: well nourished, well developed - Routine HEENT Exam Eye: Present: EOMI ENT: Present: mucous membranes moist, dentition normal - Routine Respiratory Exam Present: CTA bilaterally. Absent: wheezes - Routine Cardiovascular Exam Present: RRR. Absent: murmur - Routine Abdominal Exam Present: soft, normoactive bowel sounds, non distended. Absent: tenderness - Routine Extremities Exam Present: normal capillary refill - Routine Skin Exam Present: dry, warm - Routine Neurological Exam Present: alert, oriented X3, CN II-XII intact - Routine Psychiatric Exam Present: normal affect Results IRU - Labs Labs: Patient's labs reviewed including CBC. IRU A/P (1) Other specified fracture of right acetabulum, initial encounter for closed fracture Current visit: Yes Status: Acute Pain management improved. Patient is stable and doing well with therapy. (2) Anemia in chronic illness Current visit: Yes Status: Chronic Hemoglobin stable and reviewed. 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 Family is checking on chemotherapy dosing and timing. Blood sugars are running a bit high. I will check with family as to why she is on Byetta only once inside of twice daily. Is getting started with therapy. 05/30/18 15:08 Blood sugars are variable. Insulin reduced due to hypoglycemia. Blood pressures slightly high. Pain in right hip as anticipated. Wound VAC functioning normally. Started Myrebetriq for urinary frequency with negative UA. 05/30/18 15:08 05/31/18 11:48 Progressing with therapy. Blood pressures are improved as are blood sugars. Wound VAC functioning normally. 06/02/18 11:57 Patient doing well with therapy. Vital signs are stable. - Interventions to Obtain Goals PT Treatment Plan: Balance/Proprioception, Functional Activities, Gait Training , Patient/Family Education, Therapeutic Exercise OT Treatment Plan: ADL (Basic Care), Balance Training, IADL, Pt./Family Education, Ther. Exercise for ADL
[2018-06-02] MEDS: CITALOPRAM 40 MG TABLET PO SCH (20:54)
[2018-06-02] MEDS: INSULIN DETEMIR 100unit/ml INJECTION SQ SCH (20:54)
[2018-06-03 07:44] VITALS: BP 133/66; PULSE 92; RESP 18; TEMP 98.1; O2SAT 95
[2018-06-03] MEDS: ENOXAPARIN 40 MG/0.4 ML INJECTION SQ SCH (08:59)
[2018-06-03] MEDS: INSULIN ASPART 100unit/ml INJECTION SQ SCH ×2 (08:59→12:23)
[2018-06-03] MEDS: EXENATIDE SQ SCH (09:00)
[2018-06-03] MEDS: LISINOPRIL 10 MG TABLET PO SCH (09:01)
[2018-06-03] MEDS: CALCIUM CARBONATE 500 MG TABLET PO SCH (09:01)
[2018-06-03] MEDS: CYANOCOBALAMIN (B-12) 500mcg TABLET PO SCH (09:01)
[2018-06-03] MEDS: FERROUS SULFATE 324 MG TABLET PO SCH (09:01)
[2018-06-03] MEDS: MIRABEGRON 25mg TABLET PO SCH (09:01)
[2018-06-03] MEDS: OMEGA-3 ACID ESTERS 1 GM CAPSULE PO SCH (09:01)
[2018-06-03] MEDS: AMLODIPINE 5 MG TABLET PO SCH (09:01)
[2018-06-03] MEDS: OLANZapine 10 MG TABLET PO SCH (09:02)
[2018-06-03] MEDS: PALIPERIDONE 9 MG PO SCH (09:02)
[2018-06-03] MEDS: DICYCLOMINE 20mg TABLET PO SCH (09:02)
[2018-06-03] MEDS: POLYETHYL GLYCOL 3350 17gm PACKET PO SCH (09:02)
[2018-06-03] MEDS: ANASTROZOLE 1 MG TABLET PO SCH (09:02)
[2018-06-03] MEDS: DOCUSATE SODIUM 100 MG CAPSULE PO SCH (09:02)
[2018-06-03] MEDS: HYDROCODONE/APAP 5mg/325mg TABLET PO PRN ×2 (09:11)
--- NOTE | 2018-06-03 10:14 | IRU Progress Note ---
- Subjective/Serverity of Illness Date: 06/03/18 Teagan reports that she feels comfortable going home. She would like a prescription for pain medication as well as the Myrebetriq. She has had about one loose stool daily and would like to decline stool softener etc. She denies any chest pain or shortness of breath. Questions were addressed. Exam Vital Signs: Temperature 98.1 F 06/03/18 07:44 Pulse Rate 92 06/03/18 07:44 Respiratory Rate 18 06/03/18 07:44 Blood Pressure 133/66 06/03/18 07:44 Pulse Oximetry 95 06/03/18 07:44 Height/Weight/BMI: Height 1.57 m Weight 100.8 kg Body Mass Index 40.6 - Constitutional Present: no acute distress, well nourished, well developed, morbidly obese, cooperative - Routine HEENT Exam Eye: Present: EOMI ENT: Present: mucous membranes moist, dentition normal - Routine Respiratory Exam Present: CTA bilaterally. Absent: wheezes - Routine Cardiovascular Exam Present: RRR, S1, S2. Absent: murmur - Routine Abdominal Exam Present: soft, normoactive bowel sounds, non distended. Absent: tenderness - Routine Extremities Exam Present: no edema, normal capillary refill - Routine Skin Exam Present: dry, warm - Routine Neurological Exam Present: alert, oriented X3, CN II-XII intact - Routine Psychiatric Exam Present: normal affect IRU A/P (1) Other specified fracture of right acetabulum, initial encounter for closed fracture Current visit: Yes Status: Acute Patient has done well from a functional standpoint and is clinically stable to return to her home with home health physical therapy and occupational therapy. 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 Family is checking on chemotherapy dosing and timing. Blood sugars are running a bit high. I will check with family as to why she is on Byetta only once inside of twice daily. Is getting started with therapy. 05/30/18 15:08 Blood sugars are variable. Insulin reduced due to hypoglycemia. Blood pressures slightly high. Pain in right hip as anticipated. Wound VAC functioning normally. Started Myrebetriq for urinary frequency with negative UA. 05/30/18 15:08 05/31/18 11:48 Progressing with therapy. Blood pressures are improved as are blood sugars. Wound VAC functioning normally. 06/02/18 11:57 Patient doing well with therapy. Vital signs are stable. 06/03/18 10:13 Patient is stable for dismissal today. - Interventions to Obtain Goals PT Treatment Plan: Balance/Proprioception, Functional Activities, Gait Training , Patient/Family Education, Therapeutic Exercise OT Treatment Plan: ADL (Basic Care), Balance Training, IADL, Pt./Family Education, Ther. Exercise for ADL
--- NOTE | 2018-06-03 12:01 | Discharge Summary ---
Discharge Information Date of admission: 05/26/18 17:52 Anticipated date of discharge: 06/03/18 Attending Physician: Nadeem Ring MD Primary care physician: Iftikhar Borrego APRN Consults: 05/26/18 18:07 Physician Consult [CONS] Routine Consulting Provider: Nela Rosa Reason For Exam: medical management Ordering Provider has Notified Business Operations Manager: No 05/27/18 10:51 [facility] Consult [CONS] Routine Reason for consultation: assist with wound vac management - Discharge Diagnosis (1) Other specified fracture of right acetabulum, initial encounter for closed fracture Status: Acute (2) Anemia in chronic illness Status: Chronic (3) Benign essential hypertension Status: Chronic (4) DM w/o complication type II, uncontrolled Status: Chronic (5) Metastatic breast carcinoma Status: Chronic 1. Status post pathologic fracture of right acetabulum with repair via right total hip arthroplasty 2. Anemia of chronic disease 3. Metastatic breast cancer 4. Benign essential hypertension 5. Diabetes mellitus type 2 without complications, not controlled, on long-term insulin 6. Urinary stress incontinence - Laboratory Labs: 06/01/18 04:40 06/01/18 04:40 History of Present Illness HPI: Ms. Wade is a very pleasant 67-year-old female with history of breast cancer diagnosed 2 years ago. She had developed pain in the right hip with subsequent demonstration of metastatic disease to the bone. She had intractable pain and was admitted to via [facility] in 05/18/2018. She did have some pancytopenia and received G-CSF. She was felt to be stable and was taken to surgery on 05/24/2018 where she had a saucerization of the right acetabulum and right total hip arthroplasty performed. Surgeon was Sathya Leray D.O. She is weightbearing as tolerated. He recommended Lovenox while in the hospital and then transitioned aspirin twice daily for total of 30 days. She did have some acute metabolic encephalopathy occurring during the hospitalization felt to be related to postoperative delirium from multiple pain medications and anesthesia. CT head was negative. The patient also has history of diabetes mellitus type 2 and had been hypoglycemic at the time of admission to [facility]. She is on chronic insulin therapy. The patient sustained multiple functional deficits and was felt to be a good candidate for inpatient rehabilitation to allow her to gain functional mobility and ADL capability prior to returning home. Hospital Course This is a general summary of the patient's hospital course. For more details refer to the complete medical record. The patient was admitted to acute inpatient rehabilitation at [facility] on 05/26/2018 for a multidisciplinary approach to her recovery. She was followed by Dr. Ring as well as the hospitalist team. Hemoglobin was 10.2 g percent. White count was 4300 with 66% neutrophils and 18 % lymphocytes. Chemistries were unremarkable. Platelet count was slightly low at 107,000. She did complain of urinary frequency and a urinalysis was negative on 05/27/2018. She was started on Myrebetriq for urinary incontinence. Initially we utilized tramadol for pain medication. Subsequently she indicated tramadol was insufficient and we therefore transitioned to hydrocodone 5/325 taking 1 or 2 every 4 hours as needed for pain. Portable wound VAC was left in place that she came with from [facility]. She seemed to tolerate this well. This was subsequently removed. The following levels of functional competence are to be considered preliminary information. The reader is encouraged to refer to actual therapy notes and reports for specific details. The patient was followed by physical therapy while on acute inpatient rehabilitation. At the conclusion of her stay, the following functional competencies were identified: She was able to transfer with modified independent functioning. Cardiac transfers were with standby assistance. She could ambulate with a front-wheeled walker 250 feet. The patient was followed by occupational therapy while on acute inpatient rehabilitation. At the conclusion of her stay, the following functional competencies were identified: She was able to perform bathing with standby assistance, upper body dressing with modified independent level and lower body dressing with contact-guard assistance. She was able to transfer at modified independent level. It is noted that a prescription for hydrocodone 5/325 #40 was provided to the patient at the time of dismissal. She will follow-up with Dr. Estrada and Iftikhar Borrego APRN. She is to remain on aspirin 300 mg twice daily at the time of dismissal for a total of 30 days after surgery. Hospital course: Impression S/P right total hip arthroplasty due to pathologic right acetabulum fracture. Rhinorrhea Pancytopenia Type II diabetes Metastatic breast cancer Hypertension Schizophrenia Sleep apnea. Plan 05/27/18 Agree with admission to IRU under the care of Dr Ring Will monitor labs occasionally as she has known pancytopenia Monitor Accu-Cheks, continue on NovoLog 30 units with meals, and Levemir 30 at at bedtime. Monitor blood pressure, continue on lisinopril May need to consider are alternative postoperative anticoagulation given thrombocytopenia. PLT count today 107. Will continue to monitor MS Contin or Ultram as needed for pain Encourage work with PT and OT for ongoing strengthening Hospitalist services will continue to follow patient and medically manage existing comorbidities. At time of discharge medical care [place] Making good progress; blood pressure consistently borderline high. Increase lisinopril to 20 mg every morning with continued amlodipine use. Blood sugars reviewed, typically running 150-200 with occasional blood sugars in excess of 200. Tends to be highest after breakfast, a.m. dose NovoLog increased 2 units. Reassess renal function in conjunction with adjustment in lisinopril dose. Recheck hemoglobin in a.m. Mirabegron initiated for overactive bladder after UA negative for infection. Continue to monitor symptoms. Time spent with patient: greater than 35 minutes Resuscitation Status: Full Code Discharge Plan - Med Rec/Dispo Referrals/Follow Up: Esau Estrada DO [Physician] - (Dr. Keshia Estrada on 06/14/18 at 1:15 pm for Post-Op follow-up. ) Iftikhar Borrego APRN [Primary Care Provider] - (Iftikhar Borrego APRN on at 1:15 pm for Hosp. follow-up. ) Peter Instructions: Fall Prevention (DC) Prescriptions: New Mirabegron [Myrbetriq] 25 mg PO DAILY #30 tab Hydrocodone/APAP 5/325 [[place] 5/325] 1 - 2 tab PO Q4H PRN #40 tab PRN Reason: Pain Acetaminophen SR [Tylenol Arthritis 650 MG SR] 650 mg PO Q8HR tab Insulin Aspart [NovoLOG] 25 unit SQ WS vial Insulin Aspart [NovoLOG] 25 unit SQ WL vial Lisinopril [Prinivil] 20 mg PO DAILY #30 tab Palbociclib [Ibrance] 125 mg PO DAILY Insulin Aspart [NovoLOG] 27 unit SQ WB vial Aspirin [ASA] 325 mg PO BID #60 tablet Continue Cost-3/Dha/Epa/Fish Oil [Fish Oil Dr 500 mg Softgel] 1 cap PO DAILY OLANZapine [Olanzapine] 0.5 tab PO DAILY Ferrous Sulfate 325 mg PO BID Exenatide [Byetta] 10 mcg SQ DAILY Ergocalciferol (Vit. D2) [Vitamin D-2] 1 cap PO 1 WEEK Docusate Sodium [Colace] 1 cap PO BID Dicyclomine [Bentyl] 20 mg PO DAILY Cyanocobalamin (Vitamin B-12) [Vitamin B-12] 1 tab PO DAILY Citalopram [Celexa] 40 mg PO DAILY Anastrozole 1 mg PO DAILY Albuterol HFA Inhaler [Ventolin Hfa 90 mcg/actuation] 2 puff ORAL INH Q4HR PRN PRN Reason: Shortness Of Air/Wheezing Insulin Glargine,Hum.rec.anlog [Basaglar Kwikpen U-100] 30 unit SQ DAILY Amlodipine [Norvasc] 5 mg PO DAILY #30 tab Calcium Carbonate [Calcium] 500 mg PO DAILY Enoxaparin [Lovenox] 40 mg SQ DAILY #6 syringe Changed Paliperidone [Paliperidone ER] 9 mg PO DAILY #30 Discontinued Tramadol [Ultram] 50 mg PO Q6HR PRN PRN Reason: Pain Palbociclib [Ibrance] 125 mg PO DAILY Lisinopril [Prinivil] 10 mg PO DAILY GlyBURIDE [Micronase] 2.5 mg PO DAILY Sennosides/Docusate Sodium [Docusate Sodium-Sennosides Tab] 1 each PO DAILY PRN PRN Reason: Constipation Aspirin [ASA] 1 tab PO BID Insulin Aspart [NovoLOG] 30 unit SQ AC - Disposition [facility] - Dismissal Complete Discharge Instructions are:: Complete
--- NOTE | 2018-06-03 12:10 | Letter to Referring Physician ---
Dear Iftikhar, This is a brief note to bring you up-to-date on the status of Teagan Wade and her stay on the acute inpatient rehabilitation unit at [facility]. As you are likely aware, this patient was admitted to [facility] on 05/18/18 for right pathologic acetabular fracture and repair. Sathya Estrada DO, performed saucerization of right acetabulum and right total hip arthroplasty on 05/24/2018. The patient was stabilized while on the acute level and admitted to inpatient rehabilitation unit at [facility] on May 26, 2018. While on inpatient rehabilitation, this patient was seen by occupational therapy and physical therapy and improved overall in their functional ability. We also monitored and managed the patient's diabetes and other medical issues while on Acute Rehab. Please see a copy of the history and physical examination as well as discharge summary faxed separately for further details. She will continue Lovenox another 6 days and then transitioned aspirin 325 mg twice daily to complete 30 days total. Please note that we did give her a prescription for hydrocodone/acetaminophen 5/325 #40 at the time of dismissal. Also please note that she complained of urinary incontinence (and had a negative UA) and was started on Myrebetriq 25 mg daily. A prescription for this was provided to the patient. Thank you for allowing us to be involved in this nice patient's care. Please contact me directly should you have any questions regarding their stay on the inpatient rehabilitation unit. Sincerely, Nadeem Ring M.D.
[2018-06-07] MEDS ORDERED: IBRANCE 125 MG PO SCH (09:00)
== END 2018-06-03 13:00 | disposition home health service (06) | DRG 560 ==
PROVIDERS: ADMIT Internal Medicine; ATTEND Internal Medicine